=== PATIENT | male | born 1950 | race Caucasian/White ===

== ENCOUNTER 2023-08-03 04:54 | Inpatient (IN) | payer MEDICARE, SELFPAY ==
[2023-07-31 10:56] VITALS: BMI 31.4
[2023-07-31 11:16] LABS: % Basophils 0.8 % (0-2); % Eosinophils 4.1 % (0-6); % Immature Granulocytes 0.7 % (0-0.5); % Lymphocytes 21.5 % (20.5-51.1); % Monocytes 7.9 % (1.7-9.3); Absolute Basophils 0.1 10^3/uL (0-0.2); Absolute Eosinophils 0.4 10^3/uL (0-0.7); Absolute Immature Granulocytes 0.1 10^3/uL (0-0.05); Absolute Lymphocytes 1.9 10^3/uL (1.2-3.4); Absolute Monocytes 0.7 10^3/uL (0.1-0.6); Absolute Neutrophils 5.8 10^3/uL (1.4-6.5); Hematocrit 38.3 % (39.0-52.0); Hemoglobin 13.3 g/dL (13.0-18.0); Mean Corp Hgb Conc. 34.7 g/dL (33.0-37.0); Mean Corpuscular Hgb 28.1 pg (27.0-31.0); Mean Platelet Volume 9.8 fL (7.4-10.4); Nucleated Red Blood Cells % 0 % (-); Platelet Count 355 10^3/uL (130-400); Red Blood Cell Count 4.73 10^6/uL (4.70-6.10); Red Cell Dist. Width 14.1 % (11.5-14.5); White Blood Cell Count 8.9 10^3/uL (4.8-10.8)
[2023-07-31 11:35] LABS: APTT 26.2 Sec (23.4-35.0)
[2023-07-31 11:44] LABS: ALT (SGPT) 26 U/L (0-50); AST (SGOT) 23 U/L (17-59); Albumin 4.5 g/dl (3.5-5.0); Alkaline Phosphatase 125 U/L (38-126); Blood Urea Nitrogen 32 mg/dl (9-20); Calcium 10.1 mg/dl (8.4-10.2); Carbon Dioxide 28 mmol/L (22-30); Chloride 101 mmol/L (98-107); Direct Bilirubin 0.3 mg/dl (0.0-0.4); Estimated Creatinine Clearance 55 ml/min; Glucose 139 mg/dl (70-99); Potassium 4.2 mmol/L (3.5-5.1); Sodium 140 mmol/L (135-145); Total Bilirubin 1.1 mg/dl (0.2-1.3); Total Protein 7.1 g/dl (6.3-8.2)
[2023-07-31 11:58] LABS: Glycohemoglobin (HgbA1c) 9.5 % (4.0-5.6)
[2023-07-31 13:22] LABS: Urine Albumin 3+ (Neg - Trace); Urine Bilirubin Negative (Negative); Urine Character Clear (Clear); Urine Color Yellow; Urine Glucose Negative (Negative); Urine Ketone Negative (Negative); Urine Leukocyte Negative (Negative); Urine Nitrite Negative (Negative); Urine Occult Blood Negative (Negative); Urine Specific Gravity 1.025 (<1.030); Urine Urobilinogen Negative (Neg - 1+)
[2023-07-31 13:46] LABS: Urine Bacteria Few (Negative); Urine Mucus Moderate; Urine Red Blood Cell 0-2 /HPF (0-2); Urine White Cell 0-2 /HPF (0-5)
--- NOTE | 2023-07-31 14:44 | CM ---
spoke to pt in [facility], we discussed pre op CABG teaching including lifting restrictions. pt is intellectually challenged but appears to me as higher functioning. pt is prev indep, lives alone in an apt with no steps. he denies any dme's. his parents
are decesed and he has a younger sister whom he says is not physically well but mentally good, he talks to her often, she does not drive. he does not drive and lives in [facility], [place] then takes an uber to his destination. he has a good friend who works in his [employer] who will be taking the uber with his the morning of surgery and will be here when he is dc'ed to drive in the uber home with him. he gets 2-3 meals delivered to
his apt from various restaurants/deli's nearby daily. he does not go to the a supermarket. we discussed home food delivery from [employer]. he does not cook. he travels to his PCP, Dr Bella, in [place] ([phone]) weekly to get his insulin syringes
prefilled and gets his trulicity shot. i called the PCP, spoke to Mary Alice, she confirmed and said the pt is coming in this week and she will fill up 4 wks worth of insulin syringes so he does not need to travel during that time, he will also get 4
trulicity doses as well to take home.
pt will need VN services after dc, cm to shirinal is he needs SNF. he is aware that he will need to take an uber, or find a ride, to the f/u appt with Dr Wallace 10 days after dc.
cm role explained and all questions answered. pt has soap, ct surgery book and instructions. cm to follow, plan is for CABG wednesday 08/02.
[2023-08-03] VITALS (15 sets, daily range): BP systolic 92–167; BP diastolic 51–78; BMI 31.7
[2023-08-03] MEDS: MAGNESIUM OXIDE 500 MG PO (05:17)
[2023-08-03] MEDS: PROTONIX 40 MG PO (05:17)
[2023-08-03] MEDS: BACTROBAN 2% OINTMENT 1 APPLIC NASAL ×2 (05:17→19:47)
[2023-08-03] MEDS: LOPRESSOR 25 MG PO (05:17)
--- NOTE | 2023-08-03 05:18 | PTCARENOTE ---
pt admitted into room 2268, VS and weight obtained. caregiver, Miesha, at bedside. pt confirms 2 showers @ home and NPO since midnight. admission questions and med rec completed. clip prep and CHG wipes done. ABO drawn and sent. pre-op meds given.
--- NOTE | 2023-08-03 06:09 | W.CVOR.SURPR ---
CVOR Surgeon Immed Pre Op
-
I have examined this patient prior to performance of the scheduled procedure.
The patient's condition is unchanged from the time of the dictated/written History and
Physical and the patient is able to undergo the scheduled procedure.
CABG + LUIS MANUEL E
[2023-08-03 07:30] LABS: Urine Albumin 2+ (Neg - Trace); Urine Bilirubin Negative (Negative); Urine Character Clear (Clear); Urine Color Yellow; Urine Glucose Negative (Negative); Urine Ketone Negative (Negative); Urine Leukocyte Negative (Negative); Urine Nitrite Negative (Negative); Urine Occult Blood Negative (Negative); Urine Specific Gravity 1.015 (<1.030); Urine Urobilinogen Negative (Neg - 1+)
[2023-08-03 07:45] LABS: Urine Bacteria Few (Negative); Urine White Cell 0-2 /HPF (0-5)
[2023-08-03 07:45] LABS: ACT+ - POC 90 Seconds (82-134)
[2023-08-03 07:46] LABS: Urine Red Blood Cell 0-2 /HPF (0-2)
[2023-08-03 07:50] LABS: B.E. - POC -1.2 mmol/L; Glucose - POC 175 mg/dl (65-99); HCO3 - POC 23 mmol/L (21-29); Hematocrit - POC 31 % PCV (42-52); Hemodilution- POC No; Hemoglobin Calculated - POC 10.4; Ionized Calcium - POC 1.11 mmol/L (1.12-1.27); O2 Saturation %Calculated-POC 99.4 5 (92-96); PCO2 - POC 36 mmHg (35-45); PO2 - POC 155 mmHg (80-100); Potassium - POC 3.8 mmol/L (3.6-5.0); Sodium - POC 140 mmol/L (135-145); pH - POC 7.41 (7.35-7.45)
[2023-08-03 09:09] LABS: ACT+ - POC 484 Seconds (82-134)
--- NOTE | 2023-08-03 09:15 | CM ---
Patient in OR today for CABG.
Pt. resides in a private apartment alone.
He is functionally indep. at baseline without the use of any assisted device.
DC plan is anticipated for home w/ VN; friend will be staying w/ him for sev. days.
CM to follow.
[2023-08-03 09:36] LABS: B.E. - POC 1.2 mmol/L; Glucose - POC 134 mg/dl (65-99); HCO3 - POC 27 mmol/L (21-29); Hematocrit - POC 24 % PCV (42-52); Hemodilution- POC Yes; Hemoglobin Calculated - POC 8.1; Ionized Calcium - POC 0.99 mmol/L (1.12-1.27); O2 Saturation %Calculated-POC 99.9 5 (92-96); PCO2 - POC 44 mmHg (35-45); PO2 - POC 334 mmHg (80-100); Potassium - POC 4.5 mmol/L (3.6-5.0); Sodium - POC 138 mmol/L (135-145); pH - POC 7.38 (7.35-7.45)
[2023-08-03 09:36] LABS: ACT+ - POC 501 Seconds (82-134)
[2023-08-03 10:07] LABS: B.E. - POC 0.6 mmol/L; Glucose - POC 156 mg/dl (65-99); HCO3 - POC 26 mmol/L (21-29); Hematocrit - POC 28 % PCV (42-52); Hemodilution- POC Yes; Hemoglobin Calculated - POC 9.4; Ionized Calcium - POC 1.05 mmol/L (1.12-1.27); O2 Saturation %Calculated-POC 99.6 5 (92-96); PCO2 - POC 44 mmHg (35-45); PO2 - POC 178 mmHg (80-100); Sodium - POC 138 mmol/L (135-145); pH - POC 7.38 (7.35-7.45)
[2023-08-03 10:08] LABS: ACT+ - POC 443 Seconds (82-134)
[2023-08-03 11:00] LABS: ACT+ - POC 104 Seconds (82-134)
[2023-08-03 11:02] LABS: B.E. - POC -2.1 mmol/L; Glucose - POC 176 mg/dl (65-99); HCO3 - POC 22 mmol/L (21-29); Hematocrit - POC 27 % PCV (42-52); Hemodilution- POC Yes; Hemoglobin Calculated - POC 9.3; Ionized Calcium - POC 1.26 mmol/L (1.12-1.27); O2 Saturation %Calculated-POC 99.9 5 (92-96); PCO2 - POC 37 mmHg (35-45); PO2 - POC 250 mmHg (80-100); Potassium - POC 4.2 mmol/L (3.6-5.0); Sodium - POC 142 mmol/L (135-145)
--- NOTE | 2023-08-03 11:38 | W.PN.CT.SURG ---
CT Surgery Operative Note
-
CARDIAC SURGERY OPERATIVE REPORT
Preoperative Diagnosis: Multivessel Coronary Artery Disease with involving the proximal LAD
Postoperative Diagnosis: Same, acute on chronic ischemic heart failure
Procedure(s) Performed:
1. Standard sternotomy with aortic and right atrial cannulation
2. Coronary artery bypass grafting x 4 (In situ BOSTON to LAD, Ao to RSVG to high diagonal, Ao to RSVG to OM, Ao to RSVG to RPDA)
3. Endoscopic vein harvesting of right lower extremity
4. Transesophageal echocardiography
5. Placement temporary atrial and ventricular pacing wire
6. Left atrial appendage exclusion with a 35 mm clip
Date of Surgery: 08/03/23
Comorbidities:
1. Multivessel coronary artery disease involving the proximal LAD
2. Acute on chronic ischemic heart failure with EF intraoperatively of 35% from baseline of 50%
3. Hyperlipidemia
4. Hypertension
5. Diabetes
6. Schizophrenia
7. GURMEET
8. Pre-existing bundle branch block
Attending Surgeon: Chase Wallace MD, MS
Assistants: Chase Hawkins PA-C (present and necessary to medical assistant float, endoscopic vein harvest, retraction, suction, exposure, suture management, and wound closure under my direction)
Anesthesiology: Romeo Stewart MD and Elfego Solorio CRNA
Scrub and Circulating RNs: Matt Avilez RN, Alonso Juan RN
Warehouse Pricing And Inventory Clerk: Shar Mak CCP
Anesthesia: GETA
EBL: per perfusion records
Products: None
CPB Time: 87 minutes
Aortic Cross Clamp Time: 71 minutes
Indication(s) for Procedures: This is a 72-year-old male with multivessel coronary disease and stable angina. He presented with shortness of breath with exertion and chest discomfort. He underwent left heart cath which demonstrated multivessel
coronary artery disease involving the proximal LAD and multiple other territories. Given the disease pattern, and his comorbidities, he was offered revascularization as a class I indication.
Conduit(s) Quality:
BOSTON -excellent/skeletonized great flow
RSVG -good/overall relatively uniform with minimal varicosities
Target(s) Quality:
RCA/PDA -excellent/large target with good quality tissue, test dose of antegrade flow at approximately 65 cc a minute at a pressure of 80 mmHg
OM -good/slightly smaller target but overall good quality, able to flow 40 cc a minute at a pressure of 80 mmHg
High diagonal�good/good size quality target able to flow approximate 30 cc a minute at a pressure of 86 mmHg
LAD -excellent/graft to the midportion, excellent visual flow in the LAD territory as well as backfilling into the lower diagonal with removal of the bulldog
Findings:
Ventricular ejection fraction preoperatively was found to be 35%, global with some apical hypokinesis. This was new compared to his baseline indicating acute on chronic heart failure secondary to ischemia. Following surgery his EF did improve
slightly to 40-45% on low-dose dobutamine with some better apical contractility. Index initially was 1.6 and improved to 2.2. He did not require any blood products and did initially require AV pacing but then resumed his [employer] [place] sinus rhythm. The
BOSTON was harvested in a skeletonized fashion. Following bypass grafting, test dose cardioplegia was given down each distal and confirmed patency and hemostasis. Each distal was probed both proximally and distally to confirm disease and patency,
respectively. His left atrial appendage was verified to be free of any thrombus or debris preoperatively. A 35 mm clip was applied flush the base found to have no color flow on completion transesophageal echocardiogram
Description of Procedure: The patient was taken to the operating room. Their identity and procedure to be performed were verified and they were positioned supine on the operating table. Induction via general anesthesia with endotracheal intubation
was performed and central venous access and arterial monitoring were inserted. A preoperative transesophageal echocardiogram was performed to assess cardiac function and valvular function. The patient was then prepped and draped from chin to feet in
a sterile fashion. A preoperative time-out was performed with all members of the team present. A midline chest incision was performed along with median sternotomy. Simultaneous endoscopic access of the right lower extremity for saphenous vein
harvest was obtained along with administration of an initial 5,000 units of IV heparin. A RulTract sternal retractor was positioned to exposure the left internal mammary bed. The mammary was harvested and found to have good flow. A bulldog clamp was
applied to the distal end of the mammary after dividing it. It was wrapped in a papaverine soaked RayTec and replaced back into the left hemithorax. The RulTract was exchanged for a median sternal retractor. The innominate vein was isolated. Full
heparinization was given (a total of 60,000 units). We created a pericardial well. The aortic cannulation site was chosen where it was soft, pliable, and free of calcium. Cannulation was performed with an arterial cannula in the ascending aorta and
a triple-stage venous cannula through the right atrial appendage. The arterial cannula line had an appropriate bounce and correlating pressures with test dosing. Next, a root vent/antegrade cannula was inserted into the ascending aorta. The ACT was
confirmed to be over 400 and retrograde autologous priming was performed before commencing cardiopulmonary bypass. The pulmonary artery was away from the aorta to facilitate a clamp site. The aortic cross-clamp was placed after decreasing
the flow on the bypass and mean arterial pressure. A total of 1.2L initial dose of antegrade Del-Nido cardioplegia solution was given and planned for re-dosing every 75 minutes as necessary. There was rapid electro-mechanical arrest of the heart at
250 cc of cardioplegia. The left ventricle was observed for distention on echocardiogram and manual palpation. Cold slush was placed into a sponge and topically on the RV while we systemically cooled to 34 degrees centigrade.
I positioned the heart to expose the distal right coronary at the posterior descending artery. A red devil blade was used to expose the coronary and perform the arteriotomy. Coronary Avalos scissors were used to enlarge the incision. The saphenous vein
was trimmed and beveled to an appropriate size. The distal anastomosis was performed using 7-0 prolene in an end-to-side fashion. Antegrade cardioplegia was administered into the graft. Appropriate hemostasis and flow were confirmed. The graft was
measured for length to the aorta and cut. The heart was then medialized and left atrial appendage was identified. It was sized to a 35 mm clip which was applied flush the base. A suitable site on the obtuse marginal was chosen. We dissected and
prepared the distal target in a similar fashion. An end-to-side anastomosis was created with a 7-0 prolene. Antegrade cardioplegia was administered into the graft. Appropriate hemostasis and flow were confirmed. The graft was measured for length to
the aorta and cut. Next the heart was then mobilized in order to expose the high diagonal vessel. It was prepped in a similar fashion a small coronary arteriotomy was created. The vein was beveled accordingly and end-to-side anastomosis was
created with 7-0 Prolene in a running fashion. A suitable target on the mid/distal left anterior descending was identified. We dissected and prepared the distal target in a similar fashion. We retrieved the BOSTON from the chest and created a
pericardial opening while being cognizant of the phrenic nerve to facilitate the course of the mammary. The distal end of the mammary was prepped and beveled to size. We verified orientation and length of the SOM and found brisk flow. An end-to-side
anastomosis was created with a 7-0 prolene. We temporarily released the bulldog clamp on the mammary to inspect flow. Perfusion to the LAD territory was visualized and hemostasis was confirmed. The bull clamp was replaced on the mammary. The heart
was filled and the root was distended with antegrade cardioplegia to make final assessment of graft length and orientation. We created 3 aortotomies using a #11 blade then a 4.0mm aortic punch. The proximal anastomoses were created in an end-to-side
fashion using 6-0 prolene. At the the same time, we re-warmed to 36.5 degrees centigrade. The bulldog clamp was removed from the mammary. Temporary bipolar ventricular pacing wires were placed on the base of the right ventricle along with temporary
atrial pacing wires at the SVC right atrial junction. The patient was placed in a trendelenburg position and flows on bypass were lowered. The aortic cross clamp was removed and flows were slowly brought back up. All bypass grafts were inspected and
were free from kinking or twisting. The distal and proximal anastomoses appeared hemostatic. Once transesophageal echocardiography appeared satisfactory for de-airing, the flows were temporarily lowered for root vent removal. After verifying
acceptable parameters, we initiated weaning from cardiopulmonary bypass. Once we were off cardiopulmonary bypass, the venous cannula was clamped and removed. A test dose of protamine was administered and the patient was monitored for any adverse
reaction before resuming protamine. Once half of the protamine dose was delivered, pump suckers were turned off and the systolic blood pressure was lowered for aortic decannulation. The aortic cannula was removed and pursestrings were tied down. All
cannulation sites were oversewn with a 4-0 prolene. The mammary bed was inspected and hemostasis was confirmed. Once the mediastinum was hemostatic, 19Fr Danny drain was placed in the left pleural cavity and two 24Fr Danny drains were placed within
the pericardium. The sternum was approximated with 4 #7 single and 3 #8 double stainless steel wires. Fascia was approximated with #1 vicryl suture. The subcutaneous, dermis and epidermis were closed in layers in a running fashion. The skin wound
was cleansed and dressed.
All instrument, sponge, and needle counts were confirmed to be correct x 2 at the end of the operation. The patient was transferred to the cardiac intensive care unit in critical but stable condition.
I, Dr. Chase Wallace, was present, scrubbed for, and performed all critical elements of this procedure.
Chase Wallace MD, MS
Cardiothoracic Surgeon
[facility]
This operative dictation was created using the [employer] dictation system. Please excuse any grammatical, typographical, or 'sound alike' errors
[2023-08-03 11:58] LABS: Glucose - Point of Care 211 mg/dl (70-99)
--- NOTE | 2023-08-03 12:00 | PTCARENOTE ---
Received patient from CVOR at 1155. Pt intubated and sedated. RASS -5. Unresponsive. PERRLA 2mm brisk. Intubated with 8.0 ETT 24cm at the lip. POX 94%. SIMV 60% 14 600 5/5. Pt not breathing over the vent at this time. Mediastinal x2 chest tubes
y-sited to 1 atrium to -20cm suction draining red fluid. Left pleural chest tube to -20cm suction draining red fluid. No air leaks, tidaling, or crepitus noted. Small amount of clear secretions via oral cavity when suctioning. SR with LBBB on tele
with rates in the 60s. BP 102/50. Titrating cardene gtt per orders. Heart tones audible. CI 2.05. PA pressures 30s/20s, CVP 14. Bilateral radial pulses and DP pulses palpable. No edema noted. Epicardial AV wires set to back up VVI 50/8/2. No pacing
spikes noted after thresholds completed. Abdomen soft, round, nontender. Hypoactive BS. Balbuena catheter intact draining adequate amounts of clear yellow urine. Sternal incision approximated with skin glue and SIRISHA. Chest tube dressing CDI. Right groin
puncture site approximated with skin glue-GALLERY INTERN. Right SVG harvest approximated with skin glue and GEOFFREY-CDI. Right IJ cordis and swan floated to 45cm. Left radial jayda intact. All lines flushed, leveled, and zeroed. Left AC 20g PIV intact. Gtts:
Precedex, Insulin, Cardene, KVOx2. See MAR for medication administration. See worklist for complete nursing assessment. Post op EKG, labs, and CXR obtained.
[2023-08-03 12:07] LABS: Hematocrit 29.1 % (39.0-52.0); Platelet Count 254 10^3/uL (130-400)
[2023-08-03 12:11] LABS: B.E. -3.5 mmol/L; HCO3 22.1 mmol/L (21-28); Ionized Calcium 1.24 mMOL/L (1.15-1.33); O2 Saturation % 96.8 % (94-98); PCO2 41 mmHg (35-48); PO2 78 mmHg (83-108); Potassium 4.6 mMOL/L (3.5-5.1); Sodium 137 mMOL/L (136-145); pH 7.34 (7.35-7.45)
[2023-08-03 12:14] LABS: Hemoglobin 10.2 g/dL (13.0-18.0)
[2023-08-03 12:15] LABS: O2 Therapy vent
[2023-08-03 12:16] LABS: APTT 28.8 Sec (23.4-35.0)
[2023-08-03] MEDS: ANCEF 10 IV ×2 (12:20)
[2023-08-03] MEDS: NOVOLOG FLEXPEN SC ×3 (12:20→13:21)
[2023-08-03] MEDS: NSS 500 IV (12:21)
[2023-08-03] MEDS: NEURONTIN PO ×2 (12:21→14:33)
[2023-08-03 12:24] LABS: Blood Urea Nitrogen 34 mg/dl (9-20); Estimated Creatinine Clearance 48 ml/min; Glucose 185 mg/dl (70-99); Magnesium 2.5 mg/dl (1.6-2.3)
[2023-08-03 13:05] LABS: Glucose - Point of Care 178 mg/dl (70-99)
[2023-08-03] MEDS: TYLENOL PO (13:21)
[2023-08-03] MEDS: FERRLECIT 110 MG IV (13:22)
--- NOTE | 2023-08-03 13:34 | W.PN.CD ---
Today's Communication / Plan
-
Close post-op monitoring and care with weaning of drips and vent as tolerated per CT surgery/CVICU protocol.
Impression / Plan
-
Assessment/Plan: 72 y/o male with LBBB, hypertension, dyslipidemia, schizophrenia, GURMEET, ICM, and severe triple-vessel CAD who is now s/p CABG.
CAD: severe, triple vessel
-now s/p coronary artery bypass grafting x 4 (In situ BOSTON to LAD, Ao to RSVG to high diagonal, Ao to RSVG to OM, Ao to RSVG to RPDA), Left atrial appendage exclusion with a 35 mm clip 08/03/23 Dr. Wallace
-intubated/ventilated post-op
-on Cardene post-op
-CT's, Balbuena, pacer wire in place
-intra-op KRISTOPHER EF 35-40%, per notes slight improvement 40-45% post-op on dobutamine, which has since been stopped
-post-op telemetry shows SR, EKG pre-and post op LBBB (stable)
ICM:
-EF 40-50% on pre-op TTE
-intra-op KRISTOPHER 35-40% as above
-on ARB and BB as OP
-monitor volume post-op
HTN:
-monitor post-op
HLD:
-continue statin
DM:
-on insulin gtt post-op per protocol
Physical Exam
Vital Signs/Labs
Vital Signs
Temp Pulse Resp BP Pulse Ox
97.3 F 72 14 117/59 96
08/03/23 13:00 08/03/23 13:00 08/03/23 13:00 08/03/23 13:00 08/03/23 13:08
08/02/23 08/03/23 08/04/23
06:59 06:59 06:59
Actual Weight 97.2 kg
08/03/23 11:56
PT 16.0 Sec (11.4-14.6) H 08/03/23 11:56
INR 1.30 08/03/23 11:56
APTT 28.8 Sec (23.4-35.0) 08/03/23 11:56
Magnesium 2.5 mg/dl (1.6-2.3) H 08/03/23 11:56
Physical Exam
Constitutional: No acute distress
Cardiovascular: Rhythm & rate is regular
Respiratory: Other (intubated/ventilated, lungs clear)
Neuro/Psych: Other (sedated)
Other: Skin (mid sternal incision site intact)
Data Reviewed
-
Date of Service: August 03, 2023
EKG: Tracing Personally Visualized and interpreted (SR with LBBB) and Other (tele SR)
X-Ray/CT/US/MRI/NUC/PET: Report Reviewed by me (CXR stable post-op)
--- NOTE | 2023-08-03 13:53 | W.PN.UPDATE ---
Update Note
Progress Note Update
72-year-old male electively admitted 08/02 for CABG due to stable exertional angina due to multivessel coronary disease
IV fluids: 900
U.O.:� 325
Blood:� none
Wires:� none
Inotropes:� none
Pressors:� none
Sedatives:� Precedex
�
NEURO: sedated on Precedex, pupils +2mm B/L
RESP: #8OT @24cm> 600/60%/14/5. Lungs clear B/L. 2 mediastinal (0cc on arrival) and L pleural (0cc on arrival) chest tubes to -20cm suction. Sanguineous drainage
CV: RRR +S1, S2, no S3, no�rub, no murmur. Dermabond to median sternotomy. RIJ w/Woodruff locked @ 45cm. PA 36/21; CVP 16; C.O 4.3/CI 2.1
ABD: round, soft, no BS
EXT: no edema, +2/4 DP pulses B/L, no femoral bruit, RLE GEOFFREY wrap intact; left radial A-line intact
: Balbuena with clear yellow urine
�
A/P: POD #0 s/p CABG x 4 BOSTON-LAD, SVG-high diagonal, SVG-OM, SVG-RPDA. Left atrial appendage exclusion #35 mm clip
KRISTOPHER: EF�45-50%
- wean and extubate
- chronic LBBB
# CAD w/HFrEF (EF 35-40% pre-op)
- will require ASA/Plavix, statin, beta-evon (on Coreg @ home)
# acute surgical blood loss anemia-expected
- initial post-op Hb 11.2
- trend CBC
�
# T2DM (A1C 9.5)
- insulin infusion x 48h
- DM EMPLOYEE RELATIONS ADVISOR consulted
- resume Lantus, Glipizide, MFM, Trulicity as tolerated
- diabetic diet
�
# Hypertension
- on Losartan, Amlodipine @ home
- resume as BP permits
# Schizophrenia
- resume Aripiprazole 5mg BID in AM
--- NOTE | 2023-08-03 14:00 | PTCARENOTE ---
Pt startled awake. Able to follow commands to shake head yes/no appropriately and to squeeze hands/wiggle toes. CHG bath completed. RT called to bedside, attempted to cpap, but patient quickly became apneic. Placed back on SIMV settings. Pt turned
from side to side with no significant dumps from chest tubes. Pt tolerated.
[2023-08-03 14:04] LABS: Glucose - Point of Care 136 mg/dl (70-99)
--- NOTE | 2023-08-03 14:28 | PTCARENOTE ---
CI 1.76, CT PUTTY PATCHER notified, no new orders at this time.
[2023-08-03] MEDS: PACERONE PO (14:33)
--- NOTE | 2023-08-03 14:35 | CON.INTV ---
Consultation
Consultation Request
Date/Time Consultation Requested: 08/03/2023
Date/Time Consultation Performed: 08/03/2023
Requesting Provider: Dr. Wallace
Performing Provider: Dr. Xavier Alberto
Reason for Consultation: Status post coronary artery bypass
Medical History
-
History of Present Illness:
72-year-old man who has history of multivessel coronary artery disease with stable angina. He was deemed candidate for surgical revascularization. Electively admitted for coronary artery bypass. Underwent coronary bypass without complications on
08/03/[address] Wallace.
Currently in the critical care unit.
Unable to provide history. Records reviewed.
On mechanical ventilation, appears comfortable.
Past Medical History
Past Medical History: Other (See assessment and plan section)
Social History
Tobacco: Other ( Never)
Alcohol: None
Employment: Retired
Family History
Family History: Unable to Obtain
Allergies / Home Medications
Allergies
Allergy/AdvReac Type Severity Reaction Status Date / Time
No Known Allergies Allergy Verified 07/26/23 15:01
Home Medications
�Medication �Instructions �Recorded �Confirmed �Last Taken �Type
amlodipine 10 mg tablet 10 mg PO DAILY 07/26/23 08/03/23 08/02/23 09:00 History
aripiprazole 5 mg tablet 5 mg PO BID 07/26/23 08/03/23 08/02/23 18:00 History
aspirin 81 mg tablet 81 mg PO DAILY 07/26/23 08/03/23 08/02/23 09:00 History
atorvastatin 40 mg tablet 40 mg PO HS 07/26/23 08/03/23 08/02/23 21:00 History
bumetanide 2 mg tablet 2 mg PO MOWEFR 07/26/23 08/03/23 08/01/23 09:00 History
carvedilol phosphate 10 mg 10 mg PO DAILY 07/26/23 08/03/23 08/02/23 09:00 History
capsule,ext.lbcyobe26xd multiphase
clindamycin HCl 300 mg capsule 300 mg PO TID 07/26/23 08/03/23 07/27/23 History
dulaglutide 1.5 mg/0.5 mL 1.5 mg SC QWEEK 07/26/23 08/03/23 07/24/23 History
subcutaneous pen injector
(Trulicity)
famotidine 40 mg tablet 40 mg PO DAILY 07/26/23 08/03/23 08/02/23 09:00 History
glipizide 10 mg tablet 10 mg PO BID 07/26/23 08/03/23 08/02/23 18:00 History
indomethacin 50 mg capsule 50 mg PO BID 07/26/23 08/03/23 08/02/23 18:00 History
insulin glargine 100 unit/mL 50 unit SC DAILY 07/26/23 08/03/23 08/02/23 05:00 History
subcutaneous cartridge
losartan 50 mg tablet 50 mg PO DAILY 07/26/23 08/03/23 08/02/23 09:00 History
metformin 500 mg tablet 500 mg PO BID 07/26/23 08/03/23 08/02/23 18:00 History
mirtazapine 30 mg tablet 30 mg PO HS 07/26/23 08/03/23 08/02/23 21:00 History
multivitamin 1 tab PO DAILY 07/26/23 08/03/23 08/02/23 09:00 History
pantoprazole 40 mg tablet,delayed 40 mg PO DAILY 07/26/23 08/03/23 08/02/23 09:00 History
release
potassium chloride 10 mEq 10 meq PO HS 07/26/23 08/03/23 08/02/23 21:00 History
capsule,extended release
Review of Systems
-
Unable to Obtain full review of systems at this time due to: Acuity
Vitals / Labs / Diagnostic Testing
Vital Signs
Temp Pulse Resp BP Pulse Ox
98.6 F 75 15 97/68 96
08/03/23 14:00 08/03/23 14:21 08/03/23 14:21 08/03/23 14:21 08/03/23 14:21
Lab Data
08/03/23 11:56
Laboratory Results
08/03/23
11:56
PT 16.0 H
INR 1.30
APTT 28.8
pH 7.34 L
pCO2 41
pO2 78 L
HCO3 22.1
O2 Delivery Level vent
Microbiology
07/31/23 11:05 Nose MRSA Screen - Final
No Methicillin Resistant Staphylococcus aureus isolated.
Diagnostic Testing:
Physical Exam
-
HEENT: Normocephalic
Cardiovascular: S1/S2
Respiratory: Clear, Non-Labored Respirations and Other (Chest tube in place without air leak)
GI: Soft and Non Distended
Neurology: Awake and Alert
Skin: Warm
General: Respiratory Distress (n)
Assessment
-
Status post coronary artery bypass
Postoperative mechanical ventilation
Postoperative anemia
Conditions present prior admission:
Systolic cardiomyopathy ejection fraction 35%.
Hypertension
Hyperlipidemia
Type 2 diabetes
Schizophrenia
Obstructive sleep apnea
left bundle branch block
-
Assessment and plan:
He is doing well postop-currently on mechanical ventilation and appears comfortable.
ABG reviewed: Adequate oxygenation on ventilation.
Continue SIMV mode with no change
Spontaneous breathing trial per protocol once sedation wears off.
Anemia noted-no evidence of acute bleeding
Follow H&H serially
Hemodynamics -acceptable on low-dose Levophed.
Wean off vasopressors as able
Normal renal function
Balbuena urinary output
Chest tube with no excessive drainage-no air leak.
Chest x-ray reviewed: With no pneumothorax or fluid collections.
Remain nothing by mouth
Head of the bed elevation
Glycemic control per protocol
DVT prophylaxis when safe from the surgical perspective.
Critical care statement: A total of 31 minutes of critical care time was provided for this patient today. This includes management of unstable vital signs, evaluation of the patient at bedside, reviewing the patient's pertinent medical records
including ventilator settings, arterial blood gases, radiographs, microbiology, laboratory evaluations and discussion with primary team, critical care nursing, and respiratory therapy.
[2023-08-03 15:04] LABS: Glucose - Point of Care 111 mg/dl (70-99)
--- NOTE | 2023-08-03 15:05 | PTCARENOTE ---
RT at bedside, placed pt cpap trial. Pt tolerating POX 98%.
[2023-08-03 15:44] LABS: Hematocrit 31.7 % (39.0-52.0); Hemoglobin 11.3 g/dL (13.0-18.0); Platelet Count 309 10^3/uL (130-400)
[2023-08-03 15:55] LABS: HCO3 22.7 mmol/L (21-28); Ionized Calcium 1.23 mMOL/L (1.15-1.33); O2 Saturation % 97.9 % (94-98); PCO2 42 mmHg (35-48); PO2 94 mmHg (83-108); Potassium 4.6 mMOL/L (3.5-5.1); pH 7.34 (7.35-7.45)
--- NOTE | 2023-08-03 16:00 | PTCARENOTE ---
Pt extubated to 6L NC. POX 95%. Pt able to state his name and . IS encouraged-500mL achieved.
[2023-08-03 16:04] LABS: Glucose - Point of Care 115 mg/dl (70-99)
--- NOTE | 2023-08-03 16:06 | RESPNOTE ---
1600 patient extubated without incident- 6 liter NC 94% HR 82 IS done by RN 500mL
[2023-08-03] MEDS: OFIRMEV 100 IV (16:19)
[2023-08-03 17:02] LABS: Glucose - Point of Care 118 mg/dl (70-99)
[2023-08-03] MEDS: LOW STRENGTH ASPIRIN 81 MG PO (17:03)
[2023-08-03] MEDS: PACERONE 200 MG PO ×2 (17:03→22:19)
[2023-08-03] MEDS: NEURONTIN 100 MG PO ×2 (17:03→22:19)
[2023-08-03] MEDS: ROXICODONE 5 MG PO (17:39)
[2023-08-03] MEDS: FLEXERIL 5 MG PO (17:39)
[2023-08-03] MEDS: ANCEF 5 IV (17:40)
[2023-08-03 18:59] LABS: Glucose - Point of Care 102 mg/dl (70-99)
[2023-08-03] MEDS: ABILIFY 5 MG PO (19:47)
[2023-08-03] MEDS: SENOKOT-S 1 TABLET PO (19:47)
[2023-08-03] MEDS: DILAUDID 0.5 MG IV (20:37)
[2023-08-03] MEDS: LR 250 IV (20:50)
[2023-08-03] MEDS: LIPITOR 40 MG PO (22:19)
[2023-08-03] MEDS: TYLENOL 1000 MG PO (22:19)
[2023-08-03] MEDS: REMERON 30 MG PO (22:20)
[2023-08-03 22:34] LABS: Glucose - Point of Care 114 mg/dl (70-99)
[2023-08-04] VITALS (26 sets, daily range): BP systolic 86–148; BP diastolic 49–70; PULSE 79; O2SAT 91–92; BMI 32.1
[2023-08-04 00:42] LABS: Glucose - Point of Care 93 mg/dl (70-99)
[2023-08-04] MEDS: ROXICODONE 5 MG PO ×4 (01:19→19:39)
[2023-08-04] MEDS: ANCEF 5 IV ×2 (02:00→10:40)
[2023-08-04] MEDS: DILAUDID 0.5 MG IV ×3 (02:21→15:43)
[2023-08-04 02:28] LABS: Glucose - Point of Care 125 mg/dl (70-99)
[2023-08-04 03:25] LABS: Mixed Venous O2 Saturation 59.3 %
[2023-08-04 03:27] LABS: Hematocrit 27.8 % (39.0-52.0); Hemoglobin 9.7 g/dL (13.0-18.0); Mean Corp Hgb Conc. 34.9 g/dL (33.0-37.0); Mean Corpuscular Hgb 28.4 pg (27.0-31.0); Mean Corpuscular Volume 81.5 fL (80.0-94.0); Mean Platelet Volume 9.8 fL (7.4-10.4); Platelet Count 311 10^3/uL (130-400); Red Blood Cell Count 3.41 10^6/uL (4.70-6.10); Red Cell Dist. Width 14.2 % (11.5-14.5)
[2023-08-04 03:42] LABS: Blood Urea Nitrogen 37 mg/dl (9-20); Calcium 8.8 mg/dl (8.4-10.2); Carbon Dioxide 22 mmol/L (22-30); Chloride 107 mmol/L (98-107); Estimated Creatinine Clearance 43 ml/min; Glucose 104 mg/dl (70-99); Magnesium 2.2 mg/dl (1.6-2.3); Potassium 4.2 mmol/L (3.5-5.1); Sodium 140 mmol/L (135-145)
[2023-08-04 04:21] LABS: Glucose - Point of Care 102 mg/dl (70-99)
[2023-08-04] MEDS: TYLENOL 1000 MG PO ×3 (06:17→21:14)
--- NOTE | 2023-08-04 06:30 | W.PN.CT ---
Today's Communication / Plan
-
-pod #1
-no issues overnight
-at 6 am: CI 1.89, CO 3.97, mVO2 59.3. Drips: Insulin. Levo is off at 5am
-CT output: 2 meds 120/190, L pleur 60/150 in 12/24 hrs
-wean off drips and deline
-continue insulin
-d/c Balbuena
-follow Cr - 1.8 today (1.6 on 08/02 and 1.4 preop)
-current meds (ASA, Plavix, Lopressor, Amio, Lipitor, Abilify, Remeron, Gabapentin)
-encourage IS, OOB
Assessment / Plan
-
- MV-CAD involving the proximal LAD- s/p CABG x 4 (In situ BOSTON to LAD, Ao to RSVG to high diagonal, Ao to RSVG to OM, Ao to RSVG to RPDA); RLE Evh; LAAE with [address] Wallace on 08/03/23, pod #1
- Intraop KRISTOPHER: LVEF preop was found to be 35%, global with some apical hypokinesis. This was new compared to his baseline indicating acute on chronic heart failure secondary to ischemia. Following surgery his EF did improve slightly to 40-45% on
low-dose dobutamine with some better apical contractility. Index initially was 1.6 and improved to 2.2. LUIS MANUEL was verified to be free of any thrombus or debris preoperatively. A 35 mm clip was applied flush the base found to have no color flow on
completion of transesophageal echocardiogram
- Acute on chronic ischemic heart failure with EF intraoperatively of 35% from baseline of 50%
- Hyperlipidemia
- Hypertension
- Diabetes II (HgA1c 9.5)
- Class 1 obesity (BMI 31)
- Schizophrenia
- GURMEET, not on CPAP
- Chronic LBBB
- CKD 3a (Cr 1.4 preop)
- Nonsmoker
- Acute postop blood loss anemia - stable without transfusion
- Acute postop atelectasis
- Acute postop hypovolemia with subsequent hypervolemia
- ROLF on CKD
Discussed patient care with: Nursing and Care Team
Subjective
-
Date of Service: August 04, 2023
Objective Data
-
PT 16.0 Sec (11.4-14.6) H 08/03/23 11:56
INR 1.30 08/03/23 11:56
APTT 28.8 Sec (23.4-35.0) 08/03/23 11:56
Vital Signs
Vital Signs
Temp Pulse Resp BP Pulse Ox
98.8 F 72 17 113/68 95
08/04/23 01:00 08/04/23 01:10 08/04/23 01:10 08/04/23 01:00 08/04/23 01:10
CT Intake/Output/Weight
08/03/23 08/03/23 08/04/23
06:59 18:59 06:59
Intake Total 596.6 / 621.7 25.1 / 621.7
Output Total 505 / 960 455 / 960
Balance 91.6 / -338.3 -429.9 / -338.3
SaO2: 95
Physical Exam
-
General: Awake and AOx3
Cardiovascular: Regular rate & rhythm, No Murmurs and No Rub
Respiratory: Decreased Breath Sounds
Sternum: Stable
Incision: Clean, Dry and Intact
Extremities: Other (trace edema b/l)
Data Reviewed
-
Lab Results: Results Reviewed
Medications: Active Meds Reviewed
Chest X-Ray: Report Reviewed and Image Reviewed
ECG: Report Reviewed and Image Reviewed
[2023-08-04] MEDS: ABILIFY 5 MG PO ×2 (07:59→19:39)
[2023-08-04] MEDS: LOW STRENGTH ASPIRIN 81 MG PO (07:59)
[2023-08-04] MEDS: MAGNESIUM OXIDE 500 MG PO ×2 (07:59→19:39)
[2023-08-04] MEDS: FLEXERIL 5 MG PO ×2 (07:59→19:39)
[2023-08-04] MEDS: PLAVIX 75 MG PO (07:59)
[2023-08-04] MEDS: PROTONIX 40 MG PO (07:59)
[2023-08-04] MEDS: NEURONTIN 100 MG PO ×3 (07:59→21:14)
[2023-08-04] MEDS: SENOKOT-S 1 TABLET PO ×2 (08:00→19:39)
[2023-08-04] MEDS: BACTROBAN 2% OINTMENT 1 APPLIC NASAL ×2 (08:00→20:14)
[2023-08-04] MEDS: LIDOCAINE 4% PATCH 1 PATCH TOPICAL (08:00)
--- NOTE | 2023-08-04 08:03 | W.PN.ANS.POP ---
Anesthesia Post Operative
- Anesthesia Post Op Note
Vital Signs Stable-See Nursing Note: Yes
Airway Patent: Yes
Adequate Pain Control: Yes
Change in Mental Status: No
Current Postoperative Nausea & Vomiting: No
Anesthesia Complications: No
General Anesthetic Recall: No
Unplanned Admission: No
Post Op Hydration Adequate: Yes
[2023-08-04 08:09] LABS: Glucose - Point of Care 115 mg/dl (70-99)
[2023-08-04] MEDS: NOVOLOG FLEXPEN 4 UNITS SC ×3 (08:57→16:46)
--- NOTE | 2023-08-04 10:48 | PTCARENOTE ---
assumed care of pt from previous shift RN, sinus rhythm on tele w BBB, VSS, + peripheral pulses, +1 edema to bilateral lower extremities. epicardial pacing wire set to VVI 50/8. Lungs diminished, pox 94% on 4L NC. Coughing and deep breathing
encouraged, IS achieved up to 500. +bs, tolerating PO intake, quinteros removed DTV. Received pt w CT x3- LP removed. Keon and jayda removed as instructed. Pt was medicated for pain. Assisted w cardiac rehab, walked in [place]. Plan of care reviewed w the
pt and questions encouraged.
--- NOTE | 2023-08-04 11:21 | W.PN.CD ---
Addendum entered and electronically signed by Richelle Medrano MD 08/04/23 14:13:
I saw and examined the patient.
The LICENSED JOURNEYMAN ELECTRICIAN's note was reviewed and I agree with the note.
Comment: Pain at incision, but otherwise no complain. rrr, poor resp effort, bibasilar rales. Continue po op treatement . Encouraged ICS. Add GDMT as able.
Original Note:
Today's Communication / Plan
-
Post op care per CTS
add back GDMT as BP can tolerate.
Impression / Plan
-
Assessment/Plan: 72 y/o male with LBBB, hypertension, dyslipidemia, schizophrenia, GURMEET, ICM, and severe triple-vessel CAD who is now s/p CABG.
CAD: severe, triple vessel
-now s/p coronary artery bypass grafting x 4 (In situ BOSTON to LAD, Ao to RSVG to high diagonal, Ao to RSVG to OM, Ao to RSVG to RPDA), Left atrial appendage exclusion with a 35 mm clip 08/03/23 Dr. Wallace - POD 1
-intra-op KRISTOPHER EF 35-40%, per notes slight improvement 40-45% post-op on dobutamine, which has since been stopped
-NSR/ LBBB (stable)
ICM:
-EF 40-50% on pre-op TTE
-intra-op KRISTOPHER 35-40% as above
-on ARB and BB as OP ( now on po bblocker )
-monitor volume post-op, GDMT as able.
HTN:
-currently stable
HLD:
-continue statin
DM:
-on insulin gtt/meds per protocol
Physical Exam
Vital Signs/Labs
Vital Signs
Temp Pulse Resp BP Pulse Ox
99 F 79 20 117/63 93
08/04/23 10:00 08/04/23 10:04 08/04/23 10:04 08/04/23 10:04 08/04/23 10:55
08/03/23 08/04/23 08/05/23
06:59 06:59 06:59
Actual Weight 97.2 kg 98.5 kg
08/04/23 03:18
PT 16.0 Sec (11.4-14.6) H 08/03/23 11:56
INR 1.30 08/03/23 11:56
APTT 28.8 Sec (23.4-35.0) 08/03/23 11:56
Magnesium 2.2 mg/dl (1.6-2.3) 08/04/23 03:18
Physical Exam
Constitutional: No acute distress
Cardiovascular: Rhythm & rate is regular and Pedal edema is absent
Respiratory: Respiratory effort normal (decreased bases )
Neuro/Psych: AO x 3
Other: Other (MSI well approximated )
Data Reviewed
-
Date of Service: August 04, 2023
EKG: Other (tele: NSR )
Labs: Labs Reviewed by me
[2023-08-04] MEDS: LOPRESSOR PO (11:55)
[2023-08-04] MEDS: PACERONE PO (11:55)
[2023-08-04 12:10] LABS: Blood Urea Nitrogen 42 mg/dl (9-20); Calcium 8.8 mg/dl (8.4-10.2); Carbon Dioxide 24 mmol/L (22-30); Chloride 105 mmol/L (98-107); Estimated Creatinine Clearance 41 ml/min; Glucose 103 mg/dl (70-99); Potassium 4.6 mmol/L (3.5-5.1); Sodium 138 mmol/L (135-145); eGFR 37.02
[2023-08-04] MEDS: NSS IV (12:38)
[2023-08-04 13:20] LABS: Glucose - Point of Care 131 mg/dl (70-99)
[2023-08-04 13:20] LABS: Glucose - Point of Care 113 mg/dl (70-99)
--- NOTE | 2023-08-04 13:58 | W.PN.INTV ---
Today's Communication / Plan
Recommendations
Follow H&H
Daily chest x-ray
Follow chest tube output
Continue with cardiac management
Postoperative care
Sign off
Assessment
-
Status post coronary artery bypass
Postoperative mechanical ventilation
Postoperative anemia
Conditions present prior admission:
Systolic cardiomyopathy ejection fraction 35%.
Hypertension
Hyperlipidemia
Type 2 diabetes
Schizophrenia
Obstructive sleep apnea
left bundle branch block
-
Assessment and plan:
Doing well postoperative day 1
Pain is controlled
On low rate supplemental oxygen
Clear lung exam
Encourage incentive spirometry
Increase activity as tolerated
Anemia noted-no evidence of acute bleeding
Hemoglobin 9.7.
Follow H&H serially
Hemodynamics -stable off vasopressors.
Follow renal function, creatinine of 1.9
Balbuena urinary output
Chest tube with no excessive drainage-no air leak.
Chest x-ray reviewed: With no pneumothorax or fluid collections.
Advance diet as tolerated
Head of the bed elevation
Glycemic control per protocol
DVT prophylaxis when safe from the surgical perspective.
Patient has been transferred to telemetry.
Critical care team will sign off.
Subjective Dataa
Subjective Data
Date of Service:
Date of Service: August 04, 2023
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
Subjective:
Patient denies any significant shortness of breath at rest
Pain is controlled
Denies any cough or phlegm production
Review of Systems
GI: Abdominal Pain (n), Nausea (n) and Vomiting (n)
Neuro: Headache (n)
Objective Data
Data Reviewed
Vital Signs / I&O / Oxygen:
Vital Signs
Temp Pulse Resp BP Pulse Ox
98.9 F 79 20 113/57 93
08/04/23 13:00 08/04/23 13:00 08/04/23 13:00 08/04/23 13:00 08/04/23 13:00
Intake and Output
08/03/23 08/04/23 08/05/23
06:59 06:59 06:59
Intake Total 621.7 / 621.7 159.5 / 159.5
Output Total 1275 / 1275 135 / 135
Balance -653.3 / -653.3 24. / 24.5
SaO2 [CPAP/PSV] 98
SaO2 [SIMV] 96
SaO2 93
Nasal Cannula flow liters per 4
minute
Physical Exam
General: Respiratory Distress (n) and Comfortable
HEENT: Normocephalic
Cardiovascular: S1-S2
Respiratory: Non-Labored Respirations and Chest Tube (No air leak)
GI: Soft and Non Distended
Neurology: Awake, Alert and Oriented
Labs/Micro/Reports
Lab Data
08/04/23 03:18
08/04/23 11:46
Laboratory Results
08/03/23
15:36
pH 7.34 L
pCO2 42
pO2 94
HCO3 22.7
O2 Delivery Level
Microbiology
07/31/23 11:05 Nose MRSA Screen - Final
No Methicillin Resistant Staphylococcus aureus isolated.
[2023-08-04] MEDS: FERRLECIT 110 MG IV (14:23)
[2023-08-04 14:24] LABS: Glucose - Point of Care 272 mg/dl (70-99)
--- NOTE | 2023-08-04 14:41 | PTCARENOTE ---
pacing wires insulated
[2023-08-04 15:41] LABS: Glucose - Point of Care 217 mg/dl (70-99)
[2023-08-04] MEDS: NOVOLIN R INSULIN INFUSION 100 IV (15:41)
[2023-08-04] MEDS: PACERONE 200 MG PO ×2 (15:43→21:14)
[2023-08-04 16:42] LABS: Glucose - Point of Care 202 mg/dl (70-99)
--- NOTE | 2023-08-04 17:08 | PTCARENOTE ---
pt DTV, bladder scanned for 137ml. 40mg lasix ordered by CT SALES DEVELOPMENT REPRESENTATIVE.
[2023-08-04] MEDS: LASIX 40 MG IV (17:14)
[2023-08-04 18:53] LABS: Glucose - Point of Care 196 mg/dl (70-99)
--- NOTE | 2023-08-04 19:35 | PTCARENOTE ---
Pt received from outgoing RN, pt aaox4, oob in a chair, av wire insulated, rt IJ cordis, Insulin gtt till tomorrow, MS ct to suction, vss, pain management, NSR, 2Lnc, DTV/ quinteros dced this morning, RN will continue to bladder scan pt for retention.
RN will continue to follow pt care.
[2023-08-04] MEDS: LOPRESSOR 12.5 MG PO (19:39)
[2023-08-04 20:12] LABS: Glucose - Point of Care 93 mg/dl (70-99)
[2023-08-04 21:14] LABS: Glucose - Point of Care 109 mg/dl (70-99)
[2023-08-04] MEDS: LIPITOR 40 MG PO (21:14)
[2023-08-04] MEDS: REMERON 30 MG PO (21:14)
[2023-08-04] MEDS: BUMEX 2 MG IV (21:38)
[2023-08-04 22:17] LABS: Glucose - Point of Care 125 mg/dl (70-99)
[2023-08-04 23:11] LABS: Glucose - Point of Care 109 mg/dl (70-99)
[2023-08-05] VITALS (31 sets, daily range): BP systolic 101–158; BP diastolic 53–69; BMI 32.8
--- NOTE | 2023-08-05 00:19 | PTCARENOTE ---
pt reassessment unchanged from previous, resting in bed, vss, 3lnc o2, rt ij cordis, insulin gtt, Bumex 2mg x1 IVP given, pt has not voided yet. Bladder scan for 384ml.
--- NOTE | 2023-08-05 00:47 | PTCARENOTE ---
straight cath x1-->450ml output
[2023-08-05 00:54] LABS: Glucose - Point of Care 77 mg/dl (70-99)
[2023-08-05 02:30] LABS: Glucose - Point of Care 107 mg/dl (70-99)
[2023-08-05 03:25] LABS: Hematocrit 27.2 % (39.0-52.0); Hemoglobin 9.2 g/dL (13.0-18.0); Mean Corp Hgb Conc. 33.8 g/dL (33.0-37.0); Mean Corpuscular Hgb 28.2 pg (27.0-31.0); Mean Corpuscular Volume 83.4 fL (80.0-94.0); Platelet Count 266 10^3/uL (130-400); Red Blood Cell Count 3.26 10^6/uL (4.70-6.10); Red Cell Dist. Width 14.8 % (11.5-14.5); White Blood Cell Count 20.4 10^3/uL (4.8-10.8)
[2023-08-05 03:40] LABS: Blood Urea Nitrogen 58 mg/dl (9-20); Carbon Dioxide 21 mmol/L (22-30); Estimated Creatinine Clearance 31 ml/min; Magnesium 2.4 mg/dl (1.6-2.3); eGFR 26.63
[2023-08-05 03:50] LABS: Calcium 8.2 mg/dl (8.4-10.2); Chloride 104 mmol/L (98-107); Glucose 109 mg/dl (70-99); Potassium 4.4 mmol/L (3.5-5.1); Sodium 136 mmol/L (135-145)
[2023-08-05 03:50] LABS: Glucose - Point of Care 122 mg/dl (70-99)
--- NOTE | 2023-08-05 03:51 | PTCARENOTE ---
pt reassessment unchanged from previous, vss, 3-4lnc, pain management, labs collected, chg bath completed, insulin gtt, rt IJ cordis, AV wires insulated.
[2023-08-05 04:41] LABS: Glucose - Point of Care 108 mg/dl (70-99)
[2023-08-05 05:26] LABS: Glucose - Point of Care 98 mg/dl (70-99)
--- NOTE | 2023-08-05 05:40 | PTCARENOTE ---
Bladder scanned for 175ml, pt has not void since being straight cath early this morning.
[2023-08-05] MEDS: ROXICODONE 5 MG PO ×2 (05:46→19:50)
[2023-08-05] MEDS: TYLENOL 1000 MG PO ×3 (05:46→21:47)
[2023-08-05] MEDS: FLEXERIL 5 MG PO ×2 (05:46→13:35)
--- NOTE | 2023-08-05 05:55 | W.PN.CT ---
Today's Communication / Plan
-
-pod #2
-Bumex 2mg IV given overnight for low UO
-Patient voided 50cc after quinteros removed, PVR 384cc. Straight cathed for 450cc.
-at 6 am: CI 1.89, CO 3.97, mVO2 59.3. Drips: Insulin. Levo is off at 5am
-CT output: 2 meds 40 in 1224 hrs
-follow Cr - 2.5 today (1.9 on 08/03 and 1.4 preop)
-DTV at 06:00, may need to consult Nephrology for worsening ROLF
-current meds (ASA, Plavix, Lopressor, Amio, Lipitor, Abilify, Remeron, Gabapentin)
-encourage IS, OOB
Assessment / Plan
-
- MV-CAD involving the proximal LAD- s/p CABG x 4 (In situ B[place] to LAD, Ao to RSVG to high diagonal, Ao to RSVG to OM, Ao to RSVG to RPDA); RLE Evh; LAAE with [address] Wallace on 08/03/23, pod #2
- Intraop KRISTOPHER: LVEF preop was found to be 35%, global with some apical hypokinesis. This was new compared to his baseline indicating acute on chronic heart failure secondary to ischemia. Following surgery his EF did improve slightly to 40-45% on
low-dose dobutamine with some better apical contractility. Index initially was 1.6 and improved to 2.2. LUIS MANUEL was verified to be free of any thrombus or debris preoperatively. A 35 mm clip was applied flush the base found to have no color flow on
completion of transesophageal echocardiogram
- Acute on chronic ischemic heart failure with EF intraoperatively of 35% from baseline of 50%
- Hyperlipidemia
- Hypertension
- Diabetes II (HgA1c 9.5)
- Class 1 obesity (BMI 31)
- Schizophrenia
- GURMEET, not on CPAP
- Chronic LBBB
- CKD 3a (Cr 1.4 preop)
- Nonsmoker
- Acute postop blood loss anemia - stable without transfusion
- Acute postop atelectasis
- Acute postop hypovolemia with subsequent hypervolemia
- ROLF on CKD
Subjective
Procedure
s/p CABG x 4 (In situ BOSTON to LAD, Ao to RSVG to high diagonal, Ao to RSVG to OM, Ao to RSVG to RPDA); RLE Evh; LAAE with [address] Wallace on 08/03/23
-
Date of Service: August 05, 2023
Objective Data
-
Lab Results
08/05/23 03:08
08/05/23 03:08
PT 16.0 Sec (11.4-14.6) H 08/03/23 11:56
INR 1.30 08/03/23 11:56
APTT 28.8 Sec (23.4-35.0) 08/03/23 11:56
Vital Signs
Vital Signs
Temp Pulse Resp BP Pulse Ox
98.8 F 74 18 105/60 89
08/05/23 04:00 08/05/23 05:00 08/05/23 05:00 08/05/23 05:00 08/05/23 05:00
CT Intake/Output/Weight
08/04/23 08/04/23 08/05/23
06:59 18:59 06:59
Intake Total 25.1 / 621.7 422.8 / 694.3 271.5 / 694.3
Output Total 770 / 1275 145 / 605 460 / 605
Balance -744.9 / -653.3 277.8 / 89.3 -188.5 / 89.3
SaO2: 89
Physical Exam
-
General: AOx3
Cardiovascular: Regular rate & rhythm
Respiratory: Decreased Breath Sounds
Sternum: Stable
Incision: Dressing Intact
Extremities: Edema +1
Data Reviewed
-
Lab Results: Results Reviewed
Chest X-Ray: Image Reviewed (small left pleural effusion)
[2023-08-05 07:32] LABS: Glucose - Point of Care 140 mg/dl (70-99)
[2023-08-05] MEDS: LR 1000 IV (08:12)
[2023-08-05] MEDS: LIDOCAINE 4% PATCH 1 PATCH TOPICAL (08:14)
[2023-08-05] MEDS: LOW STRENGTH ASPIRIN 81 MG PO (08:15)
[2023-08-05] MEDS: PACERONE 200 MG PO ×3 (08:15→21:47)
[2023-08-05] MEDS: ABILIFY 5 MG PO ×2 (08:15→19:50)
[2023-08-05] MEDS: NOVOLOG FLEXPEN 4 UNITS SC ×2 (08:15→11:50)
[2023-08-05] MEDS: SENOKOT-S 1 TABLET PO ×2 (08:15→19:50)
[2023-08-05] MEDS: PLAVIX 75 MG PO (08:15)
[2023-08-05] MEDS: LOPRESSOR 12.5 MG PO (08:15)
[2023-08-05] MEDS: PROTONIX 40 MG PO (08:15)
[2023-08-05] MEDS: NEURONTIN 100 MG PO ×3 (08:15→21:47)
[2023-08-05] MEDS: BACTROBAN 2% OINTMENT 1 APPLIC NASAL ×2 (08:16→19:50)
--- NOTE | 2023-08-05 08:49 | PTCARENOTE ---
assumed care of pt from previous shift RN, sinus rhythm on tele, + peripheral pulses, +1 edema to bilateral lower extremities, epicardial AV wire insulated. Lungs diminished, pox 90-92% on 4L NC, coughing and deep breathing encouraged. +bs, large
abd, semi firm- pt states that is baseline. Pt tolerating PO intake. MSI approximated, SIRISHA. Mediastinal CTs w minimal drainage. Right IJ cordis w LR infusing at 50ml/hr, PIV flushes easily. Insulin gtt maintained per glycemic protocol. Plan of care
reviewed w the pt and questions encouraged.
[2023-08-05 08:51] LABS: ALT (SGPT) 12 U/L (0-50); AST (SGOT) 39 U/L (17-59); Albumin 3.1 g/dl (3.5-5.0); Alkaline Phosphatase 102 U/L (38-126); Direct Bilirubin 0.3 mg/dl (0.0-0.4); Total Bilirubin 0.6 mg/dl (0.2-1.3); Total Protein 5.2 g/dl (6.3-8.2)
--- NOTE | 2023-08-05 09:22 | PTCARENOTE ---
pacing wires removed, bedrest and request VS explained to pt
[2023-08-05 09:31] LABS: Glucose - Point of Care 217 mg/dl (70-99)
[2023-08-05 09:44] LABS: Mixed Venous O2 Saturation 53.8 %
[2023-08-05 10:33] LABS: Glucose - Point of Care 218 mg/dl (70-99)
[2023-08-05] MEDS: DOBUTREX 500 MG 250 IV (10:36)
[2023-08-05 11:37] LABS: Glucose - Point of Care 185 mg/dl (70-99)
[2023-08-05] MEDS: NSS 500 IV (11:51)
--- NOTE | 2023-08-05 11:54 | PTCARENOTE ---
Pt bladder scanned for 404ml, straight cathed for 450ml. Dobutamine initiated and infusing as ordered. Glycemic maintained. Labs drawn and sent as ordered.
[2023-08-05 12:02] LABS: ALT (SGPT) 12 U/L (0-50); AST (SGOT) 40 U/L (17-59); Albumin 3.1 g/dl (3.5-5.0); Alkaline Phosphatase 98 U/L (38-126); Blood Urea Nitrogen 60 mg/dl (9-20); Calcium 8.4 mg/dl (8.4-10.2); Carbon Dioxide 23 mmol/L (22-30); Chloride 102 mmol/L (98-107); Estimated Creatinine Clearance 33 ml/min; Glucose 151 mg/dl (70-99); Potassium 4.1 mmol/L (3.5-5.1); Sodium 132 mmol/L (135-145); Total Bilirubin 0.7 mg/dl (0.2-1.3); Total Protein 5.2 g/dl (6.3-8.2); eGFR 27.97
--- NOTE | 2023-08-05 13:30 | PTCARENOTE ---
Glycemic due to be discontinued. Pt requiring 14 units/hr in column 5. CT LILY made aware. 15 units of lantus ordered. Insulin administered and GTT d/c as instructed.
[2023-08-05 13:34] LABS: Glucose - Point of Care 186 mg/dl (70-99)
[2023-08-05] MEDS: FERRLECIT 110 MG IV (14:26)
--- NOTE | 2023-08-05 14:38 | PTCARENOTE ---
mediastinal Cts removed without incident.
[2023-08-05] MEDS: LANTUS 0.149999999999999994 UNITS SC ×2 (14:40→21:48)
--- NOTE | 2023-08-05 14:44 | PTCARENOTE ---
pt pox 86-88% on 4L NC. CT LILY made aware. Instructed to increased NC 02 to 6L. Coughing and deep breathing encouraged.
[2023-08-05] MEDS: LASIX 40 MG IV (14:58)
--- NOTE | 2023-08-05 15:02 | PTCARENOTE ---
CXR completed, LR infusion d/c'ed. 40mg IV lasix administered as ordered. Pox 89% on 6L NC.
[2023-08-05 16:36] LABS: Glucose - Point of Care 304 mg/dl (70-99)
[2023-08-05] MEDS: NOVOLOG FLEXPEN-MODERATE RESISTANCE 7 UNITS SC (16:37)
[2023-08-05] MEDS: GLUCOTROL 10 MG PO (16:58)
--- NOTE | 2023-08-05 17:19 | W.PN.UPDATE ---
Update Note
Progress Note Update
Creatinine 1.8>1.9>2.5. LR @ 50cc/h per Dr. Wallace. LFTs WNL. A/V wires removed. Mediastinal chest tube Dc�d. MVO2 53%>Dobutamine started. Insulin infusion completed. Started Lantus 15u HS, Glucotrol 10mg BID + SSI. Repeat creatinine plateaued (2.4) @
1200. O2 sats 88% on 4L NC>LR DC'd and Lasix 40mg IV given. Bladder scan @ 1700 w/ 580cc retained>Balbuena reinserted. US left chest and TTE ordered for 08/05.
--- NOTE | 2023-08-05 17:25 | PTCARENOTE ---
pt bladder scanned for 580ml. Instructed by CT LILY to place quinteros. Quinteros placed, 600ml yellow urine in return.
--- NOTE | 2023-08-05 17:35 | PTCARENOTE ---
MV02 drawn and sent as ordered.
[2023-08-05 17:40] LABS: Mixed Venous O2 Saturation 57.4 %
[2023-08-05] MEDS: MILK OF MAGNESIA 30 ML PO (18:24)
--- NOTE | 2023-08-05 20:00 | PTCARENOTE ---
[facility]; pt resting comfortably in chair; pt is AAOx4; pt was assisted to the bathroom and back to bed; pt's pain increased to a 7/10, see MAR for pain management; LBBB on monitor, VSS; heart sounds audible, radial and DP pules
palpable, +1 lower right leg edema; lung sounds diminished at bases, spo2 90% on 6LNC, pt dyspneic on exertion; + BS x4 quadrants, abdomen soft non tender, round obese; pt voiding clear yellow urine via quinteros catheter; surgical sites maintained;
right IJ cordis and PIV maintained; dobutamine gtt infusing with SvO2 lab checks; pt is scheduled 08/05 for an Echo and US of left lung to evaluated possible left pleural effusion. call within reach; will continue to monitor.
[2023-08-05 21:36] LABS: Glucose - Point of Care 506 mg/dl (70-99)
[2023-08-05 21:47] LABS: Glucose - Point of Care 510 mg/dl (70-99)
[2023-08-05] MEDS: REMERON 30 MG PO (21:47)
[2023-08-05] MEDS: LIPITOR 40 MG PO (21:47)
[2023-08-05 22:06] LABS: Glucose 439 mg/dl (70-99)
[2023-08-05] MEDS: NOVOLOG FLEXPEN 14 UNITS SC (22:21)
[2023-08-06] VITALS (23 sets, daily range): BP systolic 121–168; BP diastolic 58–95; PULSE 79; O2SAT 96; BMI 33.1
--- NOTE | 2023-08-06 | PTCARENOTE ---
Pt assessment unchanged; LBBB on monitor, VSS; ongoing pain management, see MAR; HS BG was greater than 400, lab BG sent which was 439; CVPA ordered 14 units of NovoLog; 2 hr BG check was 398; CVPA made aware, no futher treatment at this time; will
re-check BG @ 0200; Mixed venous gas drawn and sent, CVPA made aware of results; no changed made to dobutamine gtt; call within reach; will continue to monitor.
[2023-08-06 00:19] LABS: Glucose - Point of Care 398 mg/dl (70-99)
[2023-08-06 00:31] LABS: Mixed Venous O2 Saturation 65.8 %
--- NOTE | 2023-08-06 01:05 | W.PN.CT ---
Addendum entered and electronically signed by SKYE Ochoa 08/06/23 16:42:
CDI inquiry:
Acute hypoxic respiratory failure (due to acute on chronic HFrEF)
Original Note:
Today's Communication / Plan
-
Currently maintain on Dobutamine drip @ 2, for MVO2 > 53%; monitoring mixed Venous Q6H, MVO2 improving�
Maintain quinteros catheter for acute retention �
Current meds (ASA, Plavix, Lopressor, Amio, Lipitor, Abilify, Remeron, Gabapentin)�
Lantus, Glucotrol restarted. Required additional insulin coverage overnight. Increased sliding scale coverage.
Encourage IS, OOB�
Creatinine 1.8>1.9>2.5>2.1 LR @ 50cc/h per Dr. Wallace. Lasix order 40mg at 1448.�
A/V wires and mediastinal chest tube Dc�d. �
Currently on 6L NC = maintain > 88%) 2 sat. US left chest and TTE ordered for 08/05.�
Encourage IS, OOB�
�
Assessment / Plan
-
- MV-CAD involving the proximal LAD- s/p CABG x 4 (In situ BOSTON to LAD, Ao to RSVG to high diagonal, Ao to RSVG to OM, Ao to RSVG to RPDA); RLE Evh; LAAE with [address] Wallace on 08/03/23, pod #3
- Intraop KRISTOPHER: LVEF preop was found to be 35%, global with some apical hypokinesis. This was new compared to his baseline indicating acute on chronic heart failure secondary to ischemia. Following surgery his EF did improve slightly to 40-45% on
low-dose dobutamine with some better apical contractility. Index initially was 1.6 and improved to 2.2. LUIS MANUEL was verified to be free of any thrombus or debris preoperatively. A 35 mm clip was applied flush the base found to have no color flow on
completion of transesophageal echocardiogram
- Acute on chronic ischemic heart failure with EF intraoperatively of 35% from baseline of 50%
- Hyperlipidemia
- Hypertension
- Diabetes II (HgA1c 9.5)
- Class 1 obesity (BMI 31)
- Schizophrenia
- GURMEET, not on CPAP
- Chronic LBBB
- CKD 3a (Cr 1.4 preop)
- Nonsmoker
- Acute postop blood loss anemia - stable without transfusion
- Acute postop atelectasis
- Acute postop hypovolemia with subsequent hypervolemia
- ROLF on CKD
Subjective
Procedure
s/p CABG x 4 (In situ BOSTON to LAD, Ao to RSVG to high diagonal, Ao to RSVG to OM, Ao to RSVG to RPDA); RLE Evh; LAAE with [address] Wallace on 08/03/23
-
Date of Service: August 06, 2023
Objective Data
-
PT 16.0 Sec (11.4-14.6) H 08/03/23 11:56
INR 1.30 08/03/23 11:56
APTT 28.8 Sec (23.4-35.0) 08/03/23 11:56
Vital Signs
Vital Signs
Temp Pulse Resp BP Pulse Ox
98.5 F 78 20 123/60 93
08/06/23 00:00 08/06/23 00:00 08/06/23 00:00 08/06/23 00:00 08/06/23 00:00
CT Intake/Output/Weight
08/05/23 08/05/23 08/06/23
06:59 18:59 06:59
Intake Total 282.6 / 716.5 575.8 / 1120.2 544.4 / 1120.2
Output Total 460 / 655 1170 / 1725 555 / 1725
Balance -177.4 / 61.5 -594.2 / -604.8 -10.6 / -604.8
SaO2: 93
Physical Exam
-
General: Awake
Cardiovascular: Regular rate & rhythm
Respiratory: Clear
Sternum: Stable
Incision: Clean, Dry and Intact
Extremities: Edema +1
[2023-08-06 01:57] LABS: Glucose - Point of Care 364 mg/dl (70-99)
[2023-08-06] MEDS: NOVOLOG FLEXPEN 12 UNITS SC (02:13)
--- NOTE | 2023-08-06 04:00 | PTCARENOTE ---
Pt assessment unchanged; AM labs drawn; continuing to monitor BG; BG is still > 300 but is trending down; CVPA aware; call within reach; will continue to monitor.
[2023-08-06 04:02] LABS: Glucose - Point of Care 320 mg/dl (70-99)
[2023-08-06 04:10] LABS: Mixed Venous O2 Saturation 57.9 %
[2023-08-06 04:17] LABS: Hematocrit 25.6 % (39.0-52.0); Hemoglobin 8.7 g/dL (13.0-18.0); Mean Corpuscular Hgb 28.8 pg (27.0-31.0); Mean Corpuscular Volume 84.8 fL (80.0-94.0); Platelet Count 242 10^3/uL (130-400); Red Blood Cell Count 3.02 10^6/uL (4.70-6.10); Red Cell Dist. Width 14.8 % (11.5-14.5); White Blood Cell Count 13.7 10^3/uL (4.8-10.8)
[2023-08-06 04:43] LABS: Blood Urea Nitrogen 62 mg/dl (9-20); Carbon Dioxide 24 mmol/L (22-30); Chloride 102 mmol/L (98-107); Estimated Creatinine Clearance 37 ml/min; Glucose 267 mg/dl (70-99); Potassium 3.8 mmol/L (3.5-5.1); Sodium 133 mmol/L (135-145); eGFR 32.83
[2023-08-06 04:51] LABS: Magnesium 2.7 mg/dl (1.6-2.3)
[2023-08-06 05:12] LABS: Glucose - Point of Care 262 mg/dl (70-99)
[2023-08-06] MEDS: TYLENOL 1000 MG PO ×3 (06:31→21:49)
[2023-08-06 06:34] LABS: Glucose - Point of Care 296 mg/dl (70-99)
[2023-08-06] MEDS: NOVOLOG FLEXPEN 6 UNITS SC (06:35)
[2023-08-06] MEDS: ROXICODONE 5 MG PO (06:38)
[2023-08-06] MEDS: KLOR-CON 20 MEQ PO (06:38)
[2023-08-06] MEDS: SENOKOT-S 1 TABLET PO ×2 (07:47→20:03)
[2023-08-06] MEDS: GLUCOTROL 10 MG PO (07:47)
[2023-08-06] MEDS: PROTONIX 40 MG PO (07:47)
[2023-08-06] MEDS: LOW STRENGTH ASPIRIN 81 MG PO (07:47)
[2023-08-06] MEDS: ABILIFY 5 MG PO ×2 (07:47→20:03)
[2023-08-06] MEDS: PACERONE 200 MG PO ×3 (07:47→21:49)
[2023-08-06] MEDS: KCL 40 MEQ PO ×2 (07:47)
[2023-08-06] MEDS: BUMEX 2 MG IV ×3 (07:48→21:49)
[2023-08-06] MEDS: PLAVIX 75 MG PO (07:48)
[2023-08-06] MEDS: NEURONTIN 100 MG PO ×3 (07:48→21:50)
[2023-08-06] MEDS: LIDOCAINE 4% PATCH TOPICAL (07:48)
[2023-08-06] MEDS: BACTROBAN 2% OINTMENT 1 APPLIC NASAL ×2 (07:49→20:03)
[2023-08-06] MEDS: NOVOLOG FLEXPEN-HIGH RESISTANCE 7 UNITS SC (07:52)
--- NOTE | 2023-08-06 08:29 | PN.DE.MGMTRT ---
Insulin Management
- -
08/06/2023: Diabetes Management Consult
72 year old male electively admitted for multivessel CAD w/stable angina. He underwent coronary bypass without complications on 08/03/2023.
PMH: Systolic cardiomyopathy ejection fraction 35%, HTN, HLD, Schizophrenia, GURMEET, LBBB and T2DM.
A1C 9.5%, Cr 2.1, eGFR 32.83. Was taking Lantus 50 units @ HS, Glipizide 10mg BID, Metformin 500 mg BID, and Trulicity 1.5mg weekly.
Pt was initially management on Critical Care glycemic protocol and transitioned off to SQ and oral regimen on 08/05/23.
Pt is POD #3 s/p CABG x 4. Awake, A/O x3, sitting up in chair, offers no complaints, able to discuss diabetes management.
Noted for persistent Hyperglycemia, glucose trended up to 510 last night, FBG 267.
Current Diabetes regimen includes Lantus 15 units(increased to 40 units this AM), Glipizide 10mg BID
Will increase Lantus to his OP dose of 50 units @ HS. STOP Glipizide, pt with ROLF Cr 2.1, eGFR 32.83 today. MFM remains on hold.
Start NovoLog 10 units AC. Change to moderate corrective with meals. Discussed with pt that Oral regime is not an option at this time 2/2 ROLF.
Pt states that he is familiar wit insulin and would be okay administering insulin 4 times a day at home. He does not monitor his blood sugars at home because it was too complicated for him and his PCP instructed him to stop monitoring. He apparently
gets his blood sugar checked once a week in his PCP office.
Informed pt that home insulin use would not be ideal without glucose monitoring. Encouraged him to get script CGM from his PCP as soon as he is discharged from the hospital.
Will cont to follow
Diabetes History
- -
Type of Diabetes: 2 requiring insulin
Pre-Admission Diabetes Regimen
08/05/23 08/06/23
11:34 03:57
Creatinine 2.4 H 2.1 H
Lab Results
Hemoglobin A1c 9.5 % (4.0-5.6) H 07/31/23 11:05
Insulin Pump Settings
IP Diabetes Regimen
08/05/23 08/05/23 08/05/23
09:29 10:32 11:34
Glucose 151 H
POC Glucose 217 H 218 H 185 H
08/05/23 08/05/23 08/05/23
13:23 16:36 21:34
Glucose
POC Glucose 186 H 304 H 506 H*
08/05/23 08/06/23 08/06/23
21:45 00:17 01:56
Glucose 439 H
POC Glucose 510 H* 398 H 364 H
08/06/23 08/06/23 08/06/23
03:57 03:59 05:05
Glucose 267 H
POC Glucose 320 H 262 H
08/06/23
06:33
Glucose
POC Glucose 296 H
Meal type: Breakfast
Amount consumed: 100%
Patient Education
--- NOTE | 2023-08-06 08:33 | PTCARENOTE ---
assumed care of pt from previous shift RN, sinus rhythm on tele, BP stable, pox 93-94% on 6L NC. + peripheral pulses, +1 edema to bilateral lower extremities. Lungs diminished, coughing and deep breathing encouraged. +bs, abd distended and slightly
firm, pt denies abd pain, tolerating PO intake and states 'its always like that.' Balbuena catheter draining yellow. Surgical sites intact, cordis w KVO and dobutamine infusing, PIV flushes easily. Plan of care reviewed w the pt and questions
encouraged.
--- NOTE | 2023-08-06 08:47 | W.PN.CD ---
Today's Communication / Plan
-
Monitor diuresis this morning.
Low threshold for bumetanide gtt vs. augmentation with metolazone.
Frequent reorientation and incentive spirometry education.
Impression / Plan
-
Assessment/Plan: 72 y/o male with LBBB, hypertension, dyslipidemia, schizophrenia, GURMEET, ICM, and severe triple-vessel CAD who is now s/p CABG.
#CAD
-Chronic.
-S/P coronary artery bypass grafting x 4 (In situ BOSTON to LAD, SVG to high diagonal, SVG to OM, SVG to RPDA) on 08/03/[address] Wallace.
-S/P LAAL (#35 Atriclip).
-CI is 1.89 L/min/m2 off of norepinephrine. Titrate off dobutamine as able.
-Continue amiodarone, aspirin, atorvastatin, clopidogrel. Metoprolol currently on hold.
-Patient given LR and bumetanide yesterday. With IV bumetanide this morning, he seems to be diuresing.
-Very poor air movement and frequent misunderstanding of incentive spirometry. Frequent reorienting required.
#ICM:
-LVEF 40-50% on pre-op TTE, now 35-40% on intraoperative KRISTOPHER.
-Weight is up in spite of furosemide transitioning to bumetanide. He remains on 6LNC.
-Monitor diuresis. Hold ALL non-essential IV volume. Low threshold to augment with metolazone.
-Start GDMT as hemodynamics/renal function will tolerate (this may need to wait until the patient has been diuresed).
#HTN:
-Chronic.
-Currently recovering from surgery.
-Monitor with introduction of GDMT.
#HLD:
-Chronic, stable.
-Continue atorvastatin.
#IDDM:
-Chronic.
-Insulin gtt/meds per protocol.
-We will be adding SGLT2i as part of GDMT.
Critical Care Time = 40 minutes.
Subjective/Interval History:
Balbuena catheter placed yesterday for 600 mL.
Remains on 6LNC.
Weight is up 0.9 kg from yesterday, 4.3 kg from admission.
Bumetanide 2 mg given yesterday/today.
Hbg down to 8.7 <-- 9.2 <-- 9.7 <-- 11.3 (baseline 13.3).
Creatinine 2.1 <-- 2.4 <-- 2.5 <-- 1.9 (baseline 1.4).
DATA:
KRISTOPHER, 08/03/2023:
CONCLUSIONS
Mild to moderate left ventricular systolic dysfunction, EF 35 to 40%, mild LVH,
stage I diastolic dysfunction.
Normal right ventricular size and function.
The aorta has atheroma less than 5 mm and mild calcifications.
Mild tricuspid regurgitation.
Trace MR. Trace AI.
Presence of spontaneous echo contrast the left atrium and appendage without
thrombus, however no thrombus is seen.
Physical Exam
Vital Signs/Labs
Vital Signs
Temp Pulse Resp BP Pulse Ox
37.1 C 89 20 140/74 94
08/06/23 07:00 08/06/23 08:00 08/06/23 08:00 08/06/23 08:00 08/06/23 07:00
08/04/23 08/05/23 08/06/23
11:59 11:59 11:59
Actual Weight 98.5 kg 100.6 kg 101.5 kg
08/06/23 03:57
PT 16.0 Sec (11.4-14.6) H 08/03/23 11:56
INR 1.30 08/03/23 11:56
APTT 28.8 Sec (23.4-35.0) 08/03/23 11:56
Magnesium 2.7 mg/dl (1.6-2.3) H 08/06/23 03:57
Physical Exam
Constitutional: No acute distress and Comfortable
EENT: Anicteric and Moist mucous membranes
Cardiovascular: Rhythm & rate is regular, Pedal edema is absent, JVD pressure is normal, S1S2 is normal and Murmur/rub/gallop absent
Respiratory: Labored respirations, Wheeze Present and Other (Diffusely decreased.)
GI: Soft, Non tender, Normal bowel sounds and Distention present
Neuro/Psych: AO x 3
Data Reviewed
-
Date of Service: August 06, 2023
Medical Decision Making: Reviewed Test Results, Independent Historian Assessment and Test Interpretation
EKG: Tracing Personally Visualized and interpreted and Report Reviewed by me
Echo: Tracing Personally Visualized and interpreted and Report Reviewed by me
X-Ray/CT/US/MRI/NUC/PET: Image Personally Visualized and interpreted and Report Reviewed by me
Medical Tests (PFT, Pathology etc): Image Personally Visualized and interpreted and Report Reviewed by me
Labs: Labs Reviewed by me
[2023-08-06] MEDS: NSS IV (12:18)
[2023-08-06 12:19] LABS: Glucose - Point of Care 345 mg/dl (70-99)
[2023-08-06] MEDS: NOVOLOG FLEXPEN 10 UNITS SC (12:19)
[2023-08-06] MEDS: NOVOLOG FLEXPEN-MODERATE RESISTANCE 7 UNITS SC (12:20)
[2023-08-06 13:53] LABS: Blood Urea Nitrogen 60 mg/dl (9-20); Calcium 8.4 mg/dl (8.4-10.2); Carbon Dioxide 22 mmol/L (22-30); Chloride 102 mmol/L (98-107); Estimated Creatinine Clearance 44 ml/min; Glucose 315 mg/dl (70-99); Potassium 4.4 mmol/L (3.5-5.1); Sodium 133 mmol/L (135-145)
--- NOTE | 2023-08-06 14:42 | PTCARENOTE ---
echo completed, dobutamine d/c'ed at 1300. US at bedside at present.
--- NOTE | 2023-08-06 14:49 | CM ---
dc plans remain home when medically stable with sandi keith
--- NOTE | 2023-08-06 15:49 | CM ---
spoke to pt in room, await PT/OT evals. we discussed rehab and pt is agreeable if recommended.
--- NOTE | 2023-08-06 15:59 | PTCARENOTE ---
vss, nc 02 weaned to 2l nc, pox 92-93%.
--- NOTE | 2023-08-06 16:02 | PN.CDI ---
CDI
- -
CDI:
Physician Documentation Request
Admit Date: 08/03/23 04:[address] surgery,
Clinical Indicators:
Patient admitted with multivessel CAD; s/p CABG x 4 & LAAE 08/02.
6/ PN, 'Acute on chronic ischemic heart failure with EF intraoperatively of 35% from baseline of 50%'
08/04 (20:00) RN note,'spo2 90% on 6LNC, pt dyspneic on exertion...'
02 requirements (post extubation 08/02):
08/05/23
15:00 08/05/23
20:00 08/06/23
00:00
Nasal Cannula flow liters per minute 6 6 6
08/06/23
03:00 08/06/23
07:00
Nasal Cannula flow liters per minute 6 6
Please clarify which of the following accurately represents the patient's respiratory status following surgery:
Acute hypoxic respiratory failure (due to acute on chronic HFrEF)
Acute hypoxic respiratory failure due to other (please specify)
Hypoxia only
Other, please specify
Additional information for Respiratory Failure:
Recognized criteria for Respiratory Failure (Source: [facility] Hospitalist Jan 2013)
ABGs: (1 or more) Symptoms Indicate:
1. p)2 <60 or RA SPO2 <91% on RA 1. Tachypnea, SOB, dyspnea 1. Type as:
2. pCO2 50 and pH <7.35 2. Use of accessory muscles a. Hypoxic
3. pO2 decrease of pCO2 increase by 3. Pallor or cyanosis b. Hypercapnic
10 mmHg from baseline if known 4. Anxiety or restlessness 2. If due to procedure or due to another cause
5. Unable to speak in full sentences
Supplemental O2 of > 40% Intubation is not required
Use of terms such as suspected, likely, concern for, or probable (associated with a specific diagnosis that is being evaluated, monitored, or treated as if it exists) are acceptable and can be coded in the inpatient setting, when documented at the
time of discharge.
Thank you,
TRACY Luke RN
CDI Specialist
available via tiger text
Please use your independent medical judgment in providing your response.
[2023-08-06 17:10] LABS: Glucose - Point of Care 419 mg/dl (70-99)
[2023-08-06 17:37] LABS: Blood Urea Nitrogen 62 mg/dl (9-20); Carbon Dioxide 24 mmol/L (22-30); Estimated Creatinine Clearance 39 ml/min; eGFR 34.81
[2023-08-06 17:46] LABS: Calcium 7.9 mg/dl (8.4-10.2); Chloride 100 mmol/L (98-107); Glucose 369 mg/dl (70-99); Potassium 4.7 mmol/L (3.5-5.1); Sodium 132 mmol/L (135-145)
[2023-08-06] MEDS: NOVOLIN R 8 UNITS IV (18:24)
[2023-08-06] MEDS: NOVOLIN R INSULIN INFUSION 100 IV (18:34)
[2023-08-06 19:10] LABS: Hepatitis C Antibody Negative (Negative)
[2023-08-06 19:27] LABS: Glucose - Point of Care 455 mg/dl (70-99)
[2023-08-06] MEDS: NOVOLOG FLEXPEN SC (19:28)
[2023-08-06] MEDS: NOVOLOG FLEXPEN-MODERATE RESISTANCE SC (19:28)
--- NOTE | 2023-08-06 20:00 | PTCARENOTE ---
[facility]; pt resting comfortably in chair; pt is AAOx4; pt was assisted to the bathroom and back to bed; pt's pain increased to a 7/10, see MAR for pain management; LBBB on monitor, VSS; heart sounds audible, radial and DP pules
palpable, +1 lower right leg edema; lung sounds diminished at bases, spo2 90% on 6LNC, pt dyspneic on exertion; + BS x4 quadrants, abdomen soft non tender, round obese; pt voiding clear yellow urine via quinteros catheter; surgical sites maintained;
right IJ cordis and PIV maintained; dobutamine gtt infusing with SvO2 lab checks; pt is scheduled 08/05 for an Echo and US of left lung to evaluated possible left pleural effusion. call within reach; will continue to monitor.
--- NOTE | 2023-08-06 20:00 | PTCARENOTE ---
[facility]; pt resting comfortably in chair; pt is AAOx4;LBBB on monitor, VSS; heart sounds audible, radial and DP pules palpable, +1 lower extremity edema; lung sounds diminished at bases, spo2 92% on 2LNC; + BS x4 quadrants, abdomen
soft non tender, round obese; pt voiding clear yellow urine via quinteros catheter; surgical sites maintained; right IJ cordis and PIV maintained; insulin gtt restarted and infusing by due ongoing elevated BG; call within reach; will
continue to monitor.
[2023-08-06 20:16] LABS: Blood Urea Nitrogen 64 mg/dl (9-20); Calcium 8.3 mg/dl (8.4-10.2); Carbon Dioxide 21 mmol/L (22-30); Chloride 100 mmol/L (98-107); Estimated Creatinine Clearance 41 ml/min; Glucose 439 mg/dl (70-99); Magnesium 2.6 mg/dl (1.6-2.3); Potassium 4.8 mmol/L (3.5-5.1); Sodium 131 mmol/L (135-145); eGFR 37.02
[2023-08-06 21:31] LABS: Glucose - Point of Care 431 mg/dl (70-99)
[2023-08-06] MEDS: LIPITOR 40 MG PO (21:49)
[2023-08-06] MEDS: REMERON 30 MG PO (21:50)
--- NOTE | 2023-08-06 22:00 | PTCARENOTE ---
Pt assessment unchanged; per CVPA lab draw for elevated BG @ 2130 was delayed to assess the need of yet another lab draw. BG was rechecked and lab drawn was unnecessary, BG was < 400. Insulin gtt adjusted according to worklist. will continue to
monitor.
[2023-08-06 22:36] LABS: Glucose - Point of Care 391 mg/dl (70-99)
[2023-08-06 23:45] LABS: Glucose - Point of Care 318 mg/dl (70-99)
[2023-08-07] VITALS (21 sets, daily range): BP systolic 105–152; BP diastolic 46–76; PULSE 85–87; O2SAT 90–93; BMI 32.7
[2023-08-07 00:54] LABS: Glucose - Point of Care 222 mg/dl (70-99)
[2023-08-07 02:06] LABS: Glucose - Point of Care 163 mg/dl (70-99)
[2023-08-07] MEDS: NOVOLIN R INSULIN INFUSION 100 IV (02:57)
[2023-08-07 03:17] LABS: Glucose - Point of Care 138 mg/dl (70-99)
--- NOTE | 2023-08-07 03:47 | W.PN.CT ---
Today's Communication / Plan
-
Plan:
-No major issues overnight. Hemodynamically and neurologically intact
-Weaned off dobutamine gtt yesterday 08/05. Resumed home BB/Coreg @ 3.125 BID
-Left pleural effusion not enough for thoracentesis per IR
-Currently being diuresed with Bumex 2mg TID. 2+ edema noted @ RLE
-Replete electrolytes
-Cont. current meds (ASA, Plavix, Lopressor, Amio, Lipitor, Abilify, Remeron, Gabapentin)
-F/u 2-view cxr
-Encourage use of IS
-OOB into chair/Ambulate
-Maintain temporary pacing wire (will cut before d/c home)
-Home likely tomorrow
Assessment / Plan
-
- MV-CAD involving the proximal LAD- s/p CABG x 4 (In situ BOSTON to LAD, Ao to RSVG to high diagonal, Ao to RSVG to OM, Ao to RSVG to RPDA); RLE Evh; LAAE with [address] Wallace on 08/03/23, pod #4
- Intraop KRISTOPHER: LVEF preop was found to be 35%, global with some apical hypokinesis. This was new compared to his baseline indicating acute on chronic heart failure secondary to ischemia. Following surgery his EF did improve slightly to 40-45% on
low-dose dobutamine with some better apical contractility. Index initially was 1.6 and improved to 2.2. LUIS MANUEL was verified to be free of any thrombus or debris preoperatively. A 35 mm clip was applied flush the base found to have no color flow on
completion of transesophageal echocardiogram
- Acute on chronic ischemic heart failure with EF intraoperatively of 35% from baseline of 50%
- Hyperlipidemia
- Hypertension
- Diabetes II (HgA1c 9.5)
- Class 1 obesity (BMI 31)
- Schizophrenia
- GURMEET, not on CPAP
- Chronic LBBB
- CKD 3a (Cr 1.4 preop)
- Nonsmoker
- Acute postop blood loss anemia - stable without transfusion
- Acute postop atelectasis/Pleural effusion
- Acute postop hypovolemia with subsequent hypervolemia
- ROLF on CKD
Discussed patient care with: Cardiology, Nursing, Respiratory Therapy, Pharmacy and Care Team
Subjective
Procedure
s/p CABG x 4 (In situ BOSTON to LAD, Ao to RSVG to high diagonal, Ao to RSVG to OM, Ao to RSVG to RPDA); RLE Evh; LAAE with [address] Wallace on 08/03/23
-
Date of Service: August 07, 2023
Pt c/o pleuritic chest pain, otherwise feels well
Objective Data
-
PT 16.0 Sec (11.4-14.6) H 08/03/23 11:56
INR 1.30 08/03/23 11:56
APTT 28.8 Sec (23.4-35.0) 08/03/23 11:56
Vital Signs
Vital Signs
Temp Pulse Resp BP Pulse Ox
98.5 F 73 18 110/59 95
08/07/23 00:00 08/07/23 03:00 08/07/23 03:00 08/07/23 03:00 08/07/23 03:00
CT Intake/Output/Weight
08/06/23 08/06/23 08/07/23
06:59 18:59 06:59
Intake Total 620.4 / 1312.3 642.7 / 1274.2 631.5 / 1274.2
Output Total 1090 / 2300 2765 / 4015 1250 / 4015
Balance -469.6 / -987.7 -2122.3 / -2740.8 -618.5 / -2740.8
SaO2: 95 (2L)
Physical Exam
-
General: Awake, Oriented and AOx3
Cardiovascular: Regular rate & rhythm, No Murmurs, No Rub and No Gallop
Respiratory: Decreased Breath Sounds (rhonchi @ left base)
Sternum: Stable
Incision: Clean, Dry, Intact and Dressing Intact
Extremities: Edema +2 (on RLE, trace edema on LLE)
Data Reviewed
-
Lab Results: Results Reviewed
Medications: Active Meds Reviewed
Chest X-Ray: Report Reviewed and Image Reviewed
ECG: Report Reviewed and Image Reviewed
--- NOTE | 2023-08-07 04:00 | PTCARENOTE ---
Pt assessment unchanged; NSR on monitor VSS; labs drawn and sent; pt resting comfortably in bed; call within reach; will continue to monitor.
[2023-08-07 04:11] LABS: Hematocrit 27.4 % (39.0-52.0); Hemoglobin 9.4 g/dL (13.0-18.0); Mean Corp Hgb Conc. 34.3 g/dL (33.0-37.0); Mean Corpuscular Hgb 29.4 pg (27.0-31.0); Mean Corpuscular Volume 85.6 fL (80.0-94.0); Mean Platelet Volume 10.4 fL (7.4-10.4); Platelet Count 313 10^3/uL (130-400); Red Cell Dist. Width 14.7 % (11.5-14.5); White Blood Cell Count 12.7 10^3/uL (4.8-10.8)
[2023-08-07 04:40] LABS: Blood Urea Nitrogen 58 mg/dl (9-20); Calcium 8.3 mg/dl (8.4-10.2); Carbon Dioxide 26 mmol/L (22-30); Chloride 104 mmol/L (98-107); Estimated Creatinine Clearance 44 ml/min; Glucose 118 mg/dl (70-99); Magnesium 2.6 mg/dl (1.6-2.3); Potassium 3.9 mmol/L (3.5-5.1); Sodium 139 mmol/L (135-145)
[2023-08-07 05:12] LABS: Glucose - Point of Care 111 mg/dl (70-99)
[2023-08-07] MEDS: TYLENOL 1000 MG PO ×3 (05:18→22:21)
[2023-08-07 06:55] LABS: Glucose - Point of Care 135 mg/dl (70-99)
--- NOTE | 2023-08-07 07:38 | W.PN.CD ---
Today's Communication / Plan
-
Cont IV diuresis
GDMT on hold for recovering ROLF
Impression / Plan
-
Assessment/Plan: 72 y/o male with LBBB, hypertension, dyslipidemia, schizophrenia, GURMEET, ICM, and severe triple-vessel CAD who is now s/p CABG.
#CAD
-Chronic.
-S/P coronary artery bypass grafting x 4 (In situ BOSTON to LAD, SVG to high diagonal, SVG to OM, SVG to RPDA) on 08/03/[address] Wallace.
-S/P LAAL (#35 Atriclip).
-Now off pressors
-Continue amiodarone, aspirin, atorvastatin, clopidogrel. Coreg 3.125 mg bid added this AM
-IV bumex for diuresis, weight today August 02 weight was 214 lbs, daily standing weights
-Appears to be more oriented today, discussed incentive spirometer with him
#ICM:
-LVEF 40-50% on pre-op TTE, now 35-40% on intraoperative KRISTOPHER.
-Weight is up in spite of furosemide transitioning to bumetanide. He remains on 6LNC.
-Monitor diuresis. Hold ALL non-essential IV volume. Low threshold to augment with metolazone.
-Start GDMT as hemodynamics/renal function will tolerate (this may need to wait until the patient has been diuresed).
#HTN:
-Chronic.
-Currently recovering from surgery.
-Monitor with introduction of GDMT.
#ROLF
- Cr 1.8 today was 1.4 on July 30, Peak was 2.5
#HLD:
-Chronic, stable.
-Continue atorvastatin.
#IDDM:
-Chronic.
-Insulin gtt/meds per protocol.
-We will be adding SGLT2i as part of GDMT.
Subjective/Interval History:
Balbuena catheter placed yesterday for 600 mL.
Remains on 6LNC.
Weight is up 0.9 kg from yesterday, 4.3 kg from admission.
Bumetanide 2 mg given yesterday/today.
Hbg down to 8.7 <-- 9.2 <-- 9.7 <-- 11.3 (baseline 13.3).
Creatinine 2.1 <-- 2.4 <-- 2.5 <-- 1.9 (baseline 1.4).
DATA:
KRISTOPHER, 08/03/2023:
CONCLUSIONS
Mild to moderate left ventricular systolic dysfunction, EF 35 to 40%, mild LVH,
stage I diastolic dysfunction.
Normal right ventricular size and function.
The aorta has atheroma less than 5 mm and mild calcifications.
Mild tricuspid regurgitation.
Trace MR. Trace AI.
Presence of spontaneous echo contrast the left atrium and appendage without
thrombus, however no thrombus is seen.
Physical Exam
Vital Signs/Labs
Vital Signs
Temp Pulse Resp BP Pulse Ox
98.6 F 76 20 120/68 90
08/07/23 04:00 08/07/23 07:00 08/07/23 06:51 08/07/23 07:00 08/07/23 06:51
08/06/23 08/07/23 08/08/23
06:59 06:59 06:59
Actual Weight 223 lb 12.307 oz 221 lb 1.978 oz
08/07/23 03:16
08/07/23 03:16
PT 16.0 Sec (11.4-14.6) H 08/03/23 11:56
INR 1.30 08/03/23 11:56
APTT 28.8 Sec (23.4-35.0) 08/03/23 11:56
Magnesium 2.6 mg/dl (1.6-2.3) H 08/07/23 03:16
Physical Exam
Constitutional: No acute distress
EENT: Anicteric
Cardiovascular: Rhythm & rate is regular and Pedal edema present (trivial )
Respiratory: Respiratory effort normal and Lungs clear to auscul.
GI: Soft
Neuro/Psych: Alert and Oriented
Data Reviewed
-
Date of Service: August 07, 2023
EKG: Tracing Personally Visualized and interpreted (sr)
Echo: Report Reviewed by me
Labs: Labs Reviewed by me
[2023-08-07] MEDS: NOVOLOG FLEXPEN 4 UNITS SC (07:44)
[2023-08-07 07:46] LABS: Glucose - Point of Care 126 mg/dl (70-99)
[2023-08-07] MEDS: LOW STRENGTH ASPIRIN 81 MG PO (08:57)
[2023-08-07] MEDS: COREG 3.125 MG PO ×2 (08:57→19:52)
[2023-08-07] MEDS: FLOMAX 0.400000000000000022 MG PO (08:57)
[2023-08-07] MEDS: ROXICODONE 5 MG PO ×3 (08:57→20:40)
[2023-08-07] MEDS: ABILIFY 5 MG PO ×2 (08:57→19:52)
[2023-08-07] MEDS: PLAVIX 75 MG PO (08:57)
[2023-08-07] MEDS: BACTROBAN 2% OINTMENT 1 APPLIC NASAL (08:58)
[2023-08-07] MEDS: BUMEX 2 MG IV ×3 (08:58→22:21)
[2023-08-07] MEDS: PACERONE 200 MG PO ×3 (08:58→22:43)
[2023-08-07] MEDS: LIDOCAINE 4% PATCH 1 PATCH TOPICAL (08:58)
[2023-08-07] MEDS: NEURONTIN 100 MG PO ×3 (08:58→22:21)
[2023-08-07] MEDS: PROTONIX 40 MG PO (08:58)
[2023-08-07] MEDS: NSS IV (08:59)
[2023-08-07] MEDS: SENOKOT-S PO ×2 (08:59→19:53)
--- NOTE | 2023-08-07 09:00 | PTCARENOTE ---
Resumed care of patient. Walking rounds completed with previous RN. Pt assessed while he was sitting in the chair. Pt alert and oriented x4. Pt rates sternal pain 5/10-see MAR. C/o SOB with activity. Denies nausea. BROOKE with equal strength
throughout. 1 assist to stand and walk into the bathroom. +BM. SR with LBBB on tele with rates in the 80s. BP 120/56. Heart tones audible. Bilateral radial and DP pulses palpable. +1 generalized edema. POX 90% on RA. Lungs diminished in the bases.
No cough noted. IS encouraged-750mL achieved. Abdomen soft, round, nontender. +BS. Balbuena catheter intact draining adequate amounts of clear yellow urine. Balbuena d/c per orders. Sternal incision approximated with skin glue-SIRISHA. Old chest tube sites
open, not approximated, not draining, SIRISHA. Right groin puncture site approximated with skin glue, CD MANUFACTURING SUPERVISOR. Right SVG approximated with skin glue-SIRISHA. Right IJ cordis intact infusing NSS KVO and insulin gtt per Critical Care Glycemic Protocol. Left AC
20g PIV intact. Cordis d/c per orders, pt tolerated. See MAR for mediation administration. See worklist for complete nursing assessment. Plan of care reviewed and patient in agreement.
[2023-08-07 09:11] LABS: Glucose - Point of Care 273 mg/dl (70-99)
--- NOTE | 2023-08-07 09:50 | PN.DE.MGMTRT ---
Insulin Management
- -
08/07/2023: Diabetes Management Consult Follow up
Patient admitted for multivessel CAD w/stable angina. He underwent coronary bypass without complications on 08/03/2023.
PMH: Systolic cardiomyopathy ejection fraction 35%, HTN, HLD, Schizophrenia, GURMEET, LBBB and T2DM.
A1C 9.5%, Cr 2.1, eGFR 32.83. Was taking Lantus 50 units DAILY in AM, Glipizide 10mg BID, Metformin 500 mg BID, and Trulicity 1.5mg weekly.
Pt was initially management on Critical Care glycemic protocol and transitioned off to SQ and oral regimen on 08/05/23.
Pt is POD #4 s/p CABG x 4. Awake, A/O x3, sitting up in chair, offers no complaints, able to discuss diabetes management.
Noted for persistent Hyperglycemia, glucose trended up to 510 08/04, FBG yesterday 296m yo to 400's. Insulin infusion restarted, required 13 to 16 units per hour.
Will transition from oral meds to ac novolog and resume AM lantus. After 50 units lantus administered please wait 2 hours to stop drip.
Start NovoLog 5 units AC with low corrective. Discussed with pt that Oral regime is not an option at this time, he is agreeable.
Pt states that he is familiar with insulin and would be okay administering insulin 4 times a day at home. He does not monitor his blood sugars at home because it was too complicated for him and his PCP instructed him to stop monitoring. He
apparently gets his blood sugar checked once a week in his PCP office.
Informed pt that home insulin use would not be ideal without glucose monitoring. Encouraged him to get script CGM from his PCP as soon as he is discharged from the hospital.
Will provide monitor and instruction, he is agreeable.
Will cont to follow
Diabetes History
- -
Type of Diabetes: 2 requiring insulin
Pre-Admission Diabetes Regimen
08/06/23 08/06/23 08/06/23
13:03 17:16 19:40
Creatinine 1.8 H 2.0 H 1.9 H
08/07/23
03:16
Creatinine 1.8 H
Lab Results
Hemoglobin A1c 9.5 % (4.0-5.6) H 07/31/23 11:05
Insulin Pump Settings
IP Diabetes Regimen
08/06/23 08/06/23 08/06/23
12:18 13:03 17:08
Glucose 315 H
POC Glucose 345 H 419 H
08/06/23 08/06/23 08/06/23
17:16 19:26 19:40
Glucose 369 H 439 H
POC Glucose 455 H*
08/06/23 08/06/23 08/06/23
21:30 22:34 23:43
Glucose
POC Glucose 431 H 391 H 318 H
08/07/23 08/07/23 08/07/23
00:14 00:52 02:05
Glucose Cancelled
POC Glucose 222 H 163 H
08/07/23 08/07/23 08/07/23
03:16 05:11 06:54
Glucose 118 H
POC Glucose 138 H 111 H 135 H
08/07/23 08/07/23
07:42 09:09
Glucose
POC Glucose 126 H 273 H
Patient Education
[2023-08-07] MEDS: LANTUS 0.5 UNITS SC (10:20)
[2023-08-07 10:21] LABS: Glucose - Point of Care 316 mg/dl (70-99)
[2023-08-07 11:06] LABS: Glucose - Point of Care 224 mg/dl (70-99)
--- NOTE | 2023-08-07 12:00 | PTCARENOTE ---
Pt reassessed. Pt states he is sleepy and feels more tired today. Encouraged patient to get OOB for meals and then can nap this afternoon. VSS. NSR with LBBB on tele with rates in the 80s. BP stable 105/58. POX 90% on RA. Surgical sites stable.
Bladder scanned for 508mL, straight cathed for 550mL around 1130. Pt tolerated. Glycemic d/c per orders.
[2023-08-07] MEDS: FLEXBUMIN 100 IV (12:18)
[2023-08-07] MEDS: NOVOLOG FLEXPEN-LOW RESISTANCE 300 UNITS SC (12:20)
[2023-08-07] MEDS: NOVOLOG FLEXPEN 5 UNITS SC ×3 (12:21→22:44)
[2023-08-07 12:23] LABS: Glucose - Point of Care 138 mg/dl (70-99)
[2023-08-07] MEDS: KCL 40 MEQ PO (12:29)
[2023-08-07] MEDS: FLEXERIL 5 MG PO (13:01)
--- NOTE | 2023-08-07 14:18 | CM ---
prices for meds- pt has [facility] for perscriptions- all brand name meds are $15/month
--- NOTE | 2023-08-07 14:29 | CM ---
spoke with pt in room, he is agreeable to PT/OT recomm for SNF. he is agreeable to [facility]. referral faxed, awaiting bed avail.
--- NOTE | 2023-08-07 15:41 | PTCARENOTE ---
Addendum entered by Odessa Reardon RN 08/07/23 15:52:
BS result 157 mg/dl, 2 hr post Lunch.
Original Note:
Diabetes Education-Met with Mr. Wilkinson for glucometer instructions. Currently taking Glipizide 10 mg BID, Lantus 50 units in am, Metformin 500 mg BID and Trulicity 1.5.mf weekly. He does not monitor at home, will go to his PCP office weekly for a BS
check and to restock his Lantus insulin pen. Provided with and instructions given on the Contour Next EZ glucometer. He needed many verbal cues during repeat demonstration and had some difficulty with the lancing device. Currently injects Lantus in
his outer thigh, suggest Novolog in his abdomen. Reinforced to check his blood sugar, inject the Novolog and Lantus (which he takes in the morning) and eat in 15 minutes. This information marked in the take home education booklet. Reviewed proper
use of insulin pen. He will need reinforcement on use of glucometer.
--- NOTE | 2023-08-07 16:30 | PTCARENOTE ---
Pt reassessed. VSS. SR with LBBB with rates in the 70s. BP stable 112/46. POX 91% on RA. Surgical sites stable. Bladder scanned for 291mL. Assisted OOB to chair for dinner. No other acute changes from previous assessment.
[2023-08-07] MEDS: NOVOLOG FLEXPEN-LOW RESISTANCE 2 UNITS SC (17:04)
[2023-08-07 17:07] LABS: Glucose - Point of Care 230 mg/dl (70-99)
--- NOTE | 2023-08-07 18:38 | PTCARENOTE ---
Bladder scanned for 581mL. Pt unable to void and reports no urge to void. CT PHOTOGRAPHIC EQUIPMENT MECHANIC notified. Orders to wait for another hour and then bladder scan/see if pt has urge to void.
--- NOTE | 2023-08-07 20:00 | PTCARENOTE ---
Received pt from [facility]; pt resting comfortably in chair; pt assisted to bathroom for BM (unable) and assisted back to bed; AAOx4, pain is 7/10, see MAR; NSR with LBBB on monitor, VSS; heart sounds audible, radial and DP pulses palpable, trace
generalized edema; lung sounds diminished at b/l bases, spo2 93% on RA; + bs x4 quadrants, abdomen soft, non tender, round, obese; pt voiding clear yellow urine, ongoing urine retention with bladder scans throughout the day, per CVPA pt is to be
straight catheterized when bladder scan shows > 400ml until pt can void on his own; surgical sites are maintained; PIV maintained; pt's discharge plan is placement at a SNF; call within reach; will continue to monitor.
--- NOTE | 2023-08-07 20:20 | PTCARENOTE ---
Pt bladder scanned for 475ml and straight catheterized for 575ml; per CVPA pt will be bladder scanned again at 0000; will continue to monitor.
[2023-08-07 22:21] LABS: Glucose - Point of Care 389 mg/dl (70-99)
[2023-08-07] MEDS: REMERON 30 MG PO (22:21)
[2023-08-07] MEDS: LIPITOR 40 MG PO (22:21)
--- NOTE | 2023-08-07 22:50 | PTCARENOTE ---
HS BG was 389, 5 units of novolog given per CVPA; will continue to monitor.
[2023-08-08] VITALS (12 sets, daily range): BP systolic 89–136; BP diastolic 35–63; BMI 32.9
--- NOTE | 2023-08-08 | PTCARENOTE ---
Pt assessment unchanged; resting comfortably in bed; call within reach; will continue to monitor.
[2023-08-08 00:08] LABS: Glucose - Point of Care 302 mg/dl (70-99)
--- NOTE | 2023-08-08 00:35 | PTCARENOTE ---
pt bladder scanned at 0000 for 575mls; pt assisted to bathroom to attempt to void; pt voided 200mls; PVR was 395; CVPA made aware and does not want straight cath at this time and requested repeat bladder scan at 0300; will continue to monitor.
[2023-08-08] MEDS: ROXICODONE 5 MG PO ×3 (00:51→10:13)
[2023-08-08] MEDS: NOVOLOG FLEXPEN 4 UNITS SC (00:52)
[2023-08-08 02:54] LABS: Hemoglobin 8.8 g/dL (13.0-18.0); Mean Corp Hgb Conc. 33.8 g/dL (33.0-37.0); Mean Corpuscular Hgb 29.1 pg (27.0-31.0); Mean Corpuscular Volume 86.1 fL (80.0-94.0); Mean Platelet Volume 9.6 fL (7.4-10.4); Platelet Count 308 10^3/uL (130-400); Red Blood Cell Count 3.02 10^6/uL (4.70-6.10); White Blood Cell Count 11.7 10^3/uL (4.8-10.8)
[2023-08-08 03:19] LABS: Blood Urea Nitrogen 61 mg/dl (9-20); Calcium 8.5 mg/dl (8.4-10.2); Carbon Dioxide 27 mmol/L (22-30); Chloride 102 mmol/L (98-107); Estimated Creatinine Clearance 39 ml/min; Glucose 246 mg/dl (70-99); Magnesium 2.4 mg/dl (1.6-2.3); Potassium 4.6 mmol/L (3.5-5.1); Sodium 136 mmol/L (135-145); eGFR 34.81
--- NOTE | 2023-08-08 04:00 | PTCARENOTE ---
Pt assessment unchanged; NSR with LBBB and VSS; pt was bladder scanned at 0230 for 659mls, tried and voided 100mls, PRV was 533, straight cathed for 550. will continue to monitor.
[2023-08-08] MEDS: TYLENOL 1000 MG PO ×3 (06:01→20:08)
--- NOTE | 2023-08-08 06:23 | W.PN.CT ---
Today's Communication / Plan
-
-pod #5
-c/o chest tightness, different from preop sxs - suspect incisional pain, feels better with pain meds and O2 on.
-has L pleural effusion - appears better after diuresed with tid Bumex on 08/06. UO 1425+/1975+ in 12/24 hrs
-continues to have urinary retention - straight cathed twice overnight for over 500cc- continue Flomax
-elevated BG - on ISS, appreciate DM input
-Cr 2.0 today (1.8 on 08/06, 1.4 preop)- follow
-continue Bumex
-encourage IS, OOB
-continue PT/OT. Will need rehab when ready for discharge
Assessment / Plan
-
- MV-CAD involving the proximal LAD- s/p CABG x 4 (In situ BOSTON to LAD, Ao to RSVG to high diagonal, Ao to RSVG to OM, Ao to RSVG to RPDA); RLE Evh; LAAE with [address] Wallace on 08/03/23, pod #5
- Intraop KRISTOPHER: LVEF preop was found to be 35%, global with some apical hypokinesis. This was new compared to his baseline indicating acute on chronic heart failure secondary to ischemia. Following surgery his EF did improve slightly to 40-45% on
low-dose dobutamine with some better apical contractility. Index initially was 1.6 and improved to 2.2. LUIS MANUEL was verified to be free of any thrombus or debris preoperatively. A 35 mm clip was applied flush the base found to have no color flow on
completion of transesophageal echocardiogram
- Acute on chronic ischemic heart failure with EF intraoperatively of 35% from baseline of 50%
- Hyperlipidemia
- Hypertension
- Diabetes II (HgA1c 9.5)
- Class 1 obesity (BMI 31)
- Schizophrenia
- GURMEET, not on CPAP
- Chronic LBBB
- CKD 3a (Cr 1.4 preop)
- Nonsmoker
- Acute postop blood loss anemia - stable without transfusion
- Acute postop atelectasis/Pleural effusion
- Acute postop hypovolemia with subsequent hypervolemia
- ROLF on CKD
- Acute postop L pleural effusion
- Acute postop urinary retention
Discussed patient care with: Nursing and Care Team
Subjective
Procedure
s/p CABG x 4 (In situ BOSTON to LAD, Ao to RSVG to high diagonal, Ao to RSVG to OM, Ao to RSVG to RPDA); RLE Evh; LAAE with [address] Wallace on 08/03/23
-
Date of Service: August 08, 2023
Objective Data
-
Lab Results
08/08/23 02:44
08/08/23 02:44
PT 16.0 Sec (11.4-14.6) H 08/03/23 11:56
INR 1.30 08/03/23 11:56
APTT 28.8 Sec (23.4-35.0) 08/03/23 11:56
Vital Signs
Vital Signs
Temp Pulse Resp BP Pulse Ox
98.5 F 67 20 92/43 94
08/08/23 04:00 08/08/23 04:08 08/08/23 04:00 08/08/23 04:08 08/08/23 04:08
CT Intake/Output/Weight
08/07/23 08/07/23 08/08/23
06:59 18:59 06:59
Intake Total 673.0 / 1315.7 1075 / 1075
Output Total 1425 / 4190 / 0 1424 / 2049
Balance -752.0 / -2874.3 450 / -975 -1425 / -975
SaO2: 94
Physical Exam
-
General: Awake and AOx3
Cardiovascular: Regular rate & rhythm, No Murmurs and Rub
Respiratory: Decreased Breath Sounds
Sternum: Stable
Incision: Clean, Dry and Intact
Extremities: Other (R with 1 + edema (site of EVH); L with trace edema)
Abdomen: moderately distended, tympanic, nontender, + BM, + flatus
Data Reviewed
-
Lab Results: Results Reviewed
Medications: Active Meds Reviewed
Chest X-Ray: Report Reviewed and Image Reviewed
ECG: Report Reviewed and Image Reviewed
[2023-08-08] MEDS: NOVOLOG FLEXPEN 5 UNITS SC (07:32)
[2023-08-08] MEDS: NOVOLOG FLEXPEN-LOW RESISTANCE 4 UNITS SC ×3 (07:32→17:14)
[2023-08-08 07:35] LABS: Glucose - Point of Care 313 mg/dl (70-99)
[2023-08-08] MEDS: LOW STRENGTH ASPIRIN 81 MG PO (07:41)
[2023-08-08] MEDS: FLUSH (NSS) 1 FLUSH IV (07:41)
[2023-08-08] MEDS: ABILIFY 5 MG PO ×2 (07:41→20:05)
[2023-08-08] MEDS: LIDOCAINE 4% PATCH 1 PATCH TOPICAL (07:41)
[2023-08-08] MEDS: PROTONIX 40 MG PO (07:41)
[2023-08-08] MEDS: FLOMAX 0.400000000000000022 MG PO (07:41)
[2023-08-08] MEDS: COREG 3.125 MG PO (07:41)
[2023-08-08] MEDS: PLAVIX 75 MG PO (07:41)
[2023-08-08] MEDS: NSS IV (07:42)
[2023-08-08] MEDS: NEURONTIN 100 MG PO ×3 (07:42→20:05)
[2023-08-08] MEDS: PACERONE 200 MG PO ×3 (07:42→20:06)
[2023-08-08] MEDS: SENOKOT-S PO ×2 (07:42→20:09)
[2023-08-08] MEDS: BUMEX 2 MG IV ×2 (07:42→20:09)
--- NOTE | 2023-08-08 07:45 | PTCARENOTE ---
Resumed care of patient. Walking rounds completed. Pt assessed while he was sitting in the chair. Pt alert and oriented x3. Pt rates sternal pain 1/10. Denies shortness of breath and nausea. BROOKE with equal strength throughout. SR with LBBB on tele
with rates in the 70s-80s. BP stable 112/56. Bilateral radial and DP pulses palpable. Trace edema to b/l lower extremities. Heart tones audible. POX 92% on RA. Lungs diminished in the bases. IS encouraged-750mL achieved. Occasional moist
nonproductive cough. Abdomen soft, round, obese, nontender. +BS. BM yesterday. Due to void for this RN. Sternal incision approximated with skin glue, [employer]. Old chest tube sites open, not approximated, [employer]. Right groin puncture site approximated, SIRISHA.
Right knee incision approximated and [employer]. Left AC 20g PIV intact. See MAR for medication administration. See worklist for complete nursing assessment. Plan of care reviewed and pt in agreement.
[2023-08-08] MEDS: LANTUS 0.5 UNITS SC (07:48)
[2023-08-08] MEDS: FLEXBUMIN 50 IV (07:48)
--- NOTE | 2023-08-08 08:43 | PN.DE.MGMTRT ---
Insulin Management
- -
08/08/2023: Diabetes Management Consult Follow up
Patient admitted for multivessel CAD w/stable angina. He underwent coronary bypass without complications on 08/03/2023.
PMH: Systolic cardiomyopathy ejection fraction 35%, HTN, HLD, Schizophrenia, GURMEET, LBBB and T2DM.
A1C 9.5%, Cr 2.1, eGFR 32.83. Was taking Lantus 50 units DAILY in AM, Glipizide 10mg BID, Metformin 500 mg BID, and Trulicity 1.5mg weekly.
Pt was initially management on Critical Care glycemic protocol and transitioned off to SQ and oral regimen on 08/05/23.
Pt is POD #5 s/p CABG x 4. Awake, A/O x3, sitting up in chair, offers no complaints, able to discuss diabetes management.
Transitioned from insulin infusion to AC novolog and AM lantus 50 units yesterday. Glucose trended up to 230, 289 requiring corrective insulin.
CM reached out concerned that patient is unable to prepare and take insulin. His primary care provider prepares one week of syringes, 50 units lantus for him. Patient takes a train and an uber to have his glucose checked in their office and pick
up his week of syringes with lantus. He is also given his trulicity at that time. She has spoken to the patients doctors office both CM and the office feel it would be to complex for patient.
Restarted glipizide 10 mg BID, added Farxiga 10 mg daily. Did increase AC novolog, will reassess pre lunch to determine if dose can be reduced.
Diabetes History
- -
Type of Diabetes: 2 requiring insulin
Pre-Admission Diabetes Regimen
08/08/23
02:44
Creatinine 2.0 H
Lab Results
Hemoglobin A1c 9.5 % (4.0-5.6) H 07/31/23 11:05
Insulin Pump Settings
IP Diabetes Regimen
08/07/23 08/07/23 08/07/23
09:09 10:18 11:03
Glucose
POC Glucose 273 H 316 H 224 H
08/07/23 08/07/23 08/07/23
12:20 17:03 22:19
Glucose
POC Glucose 138 H 230 H 389 H
08/08/23 08/08/23 08/08/23
00:07 02:44 07:30
Glucose 246 H
POC Glucose 302 H 313 H
Meal type: Breakfast
Meal type: Breakfast
Amount consumed: 100%
Amount consumed: 100%
Patient Education
--- NOTE | 2023-08-08 09:00 | PTCARENOTE ---
Bladder scanned for 461. CT LABORATORY MONITOR notified. Orders to place quinteros catheter obtained d/t retention and straight cath several times. Quinteros inserted without issue. Pt tolerated. Drained 550mL clear yellow urine. Stat lock applied.
--- NOTE | 2023-08-08 09:29 | W.PN.CD ---
Today's Communication / Plan
-
Augment diuresis with metolazone.
Monitor renal function.
GDMT as hemodynamics/renal function will permit.
Impression / Plan
-
Assessment/Plan: 72 y/o male with LBBB, hypertension, dyslipidemia, schizophrenia, GURMEET, ICM, and severe triple-vessel CAD who is now s/p CABG.
#CAD
-Chronic.
-S/P coronary artery bypass grafting x 4 (In situ BOSTON to LAD, SVG to high diagonal, SVG to OM, SVG to RPDA) on 08/03/[address] Wallace.
-S/P LAAL (#35 Atriclip).
-Now off pressors
-Continue amiodarone, aspirin, atorvastatin, clopidogrel. Change carvedilol to metoprolol 12.5 mg daily in light of hypotension.
-Encourage incentive spirometry, ambulation.
-Augment bumetanide with metolazone 5 mg 30 minutes prior to next bumetanide dose.
#ICM/HFmEF:
-LVEF 40-50% on pre-op TTE, now 35-40% on intraoperative KRISTOPHER.
-Start GDMT as hemodynamics/renal function will tolerate (this may need to wait until the patient has been diuresed).
-Weight fell then julissa again.
-Augment diuresis with metolazone 5 mg 30 minutes prior to next bumetanide dose.
-Maintain quinteros for accurate I/O, comfort and for urinary retention.
-Changing carvedilol to metoprolol.
#HTN:
-Chronic. Currently hypotensive.
-Currently recovering from surgery.
-Monitor with introduction of GDMT.
#ROLF
- Cr 1.8 today was 1.4 on July 30, Peak was 2.5
#HLD:
-Chronic, stable.
-Continue atorvastatin.
#IDDM:
-Chronic.
-Insulin gtt/meds per protocol.
-We will be adding SGLT2i as part of GDMT.
Subjective/Interval History:
Dobutamine weaned.
Carvedilol 3.125 mg BID started yesterday.
Quinteros pulled yesterday. Bladder US showed retention and quinteros replaced this AM with 550 mL out.
Weight is up 0.8 kg again.
Hypotensive to 89/35 @ 4:05 AM.
92% on room air.
Creatinine hovering around 2.0.
DATA:
KRISTOPHER, 08/03/2023:
CONCLUSIONS
Mild to moderate left ventricular systolic dysfunction, EF 35 to 40%, mild LVH,
stage I diastolic dysfunction.
Normal right ventricular size and function.
The aorta has atheroma less than 5 mm and mild calcifications.
Mild tricuspid regurgitation.
Trace MR. Trace AI.
Presence of spontaneous echo contrast the left atrium and appendage without
thrombus, however no thrombus is seen.
Physical Exam
Vital Signs/Labs
Vital Signs
Temp Pulse Resp BP Pulse Ox
36.7 C 73 20 112/56 92
08/08/23 07:54 08/08/23 09:00 08/08/23 07:54 08/08/23 07:54 08/08/23 07:54
08/06/23 08/07/23 08/08/23
11:59 11:59 11:59
Actual Weight 101.5 kg 100.3 kg 101.1 kg
08/08/23 02:44
08/08/23 02:44
PT 16.0 Sec (11.4-14.6) H 08/03/23 11:56
INR 1.30 08/03/23 11:56
APTT 28.8 Sec (23.4-35.0) 08/03/23 11:56
Magnesium 2.4 mg/dl (1.6-2.3) H 08/08/23 02:44
Physical Exam
Constitutional: No acute distress and Comfortable
EENT: Anicteric and Moist mucous membranes
Cardiovascular: Rhythm & rate is regular, Pedal edema present, JVD present, S1S2 is normal and Murmur/rub/gallop absent
Respiratory: Wheeze Absent, Rhonchi Absent and Crackles Present
GI: Soft, Distention absent, Flat, Non tender and Normal bowel sounds
Neuro/Psych: AO x 3
Data Reviewed
-
Date of Service: August 08, 2023
Medical Decision Making: Reviewed Test Results, Independent Historian Assessment and Test Interpretation
EKG: Tracing Personally Visualized and interpreted and Report Reviewed by me
Echo: Tracing Personally Visualized and interpreted and Report Reviewed by me
X-Ray/CT/US/MRI/NUC/PET: Image Personally Visualized and interpreted and Report Reviewed by me
Medical Tests (PFT, Pathology etc): Image Personally Visualized and interpreted and Report Reviewed by me
Labs: Labs Reviewed by me
[2023-08-08] MEDS: FARXIGA 10 MG PO (09:33)
[2023-08-08] MEDS: GLUCOTROL 10 MG PO ×2 (09:33→17:14)
[2023-08-08] MEDS: FLEXERIL 5 MG PO (10:13)
[2023-08-08 12:26] LABS: Glucose - Point of Care 346 mg/dl (70-99)
[2023-08-08] MEDS: NOVOLOG FLEXPEN 10 UNITS SC ×2 (12:32→17:14)
[2023-08-08] MEDS: ZAROXOLYN 5 MG PO (12:34)
--- NOTE | 2023-08-08 12:38 | PTCARENOTE ---
Pt reassessed. VSS. Surgical sites stable. Balbuena draining adequate amounts of clear yellow urine. Pt ambulated in the [place] 25' with rolling walker, then assisted to chair.
--- NOTE | 2023-08-08 15:53 | PTCARENOTE ---
Pt reassessed. VSS. Encouraged pt to sit in the chair rather than lie in bed. Encouraged coughing and deep breathing. Surgical sites stable. Balbuena draining adequate clear yellow urine.
[2023-08-08 17:17] LABS: Glucose - Point of Care 300 mg/dl (70-99)
[2023-08-08 17:40] LABS: Blood Urea Nitrogen 64 mg/dl (9-20); Calcium 8.6 mg/dl (8.4-10.2); Carbon Dioxide 28 mmol/L (22-30); Chloride 97 mmol/L (98-107); Estimated Creatinine Clearance 39 ml/min; Glucose 253 mg/dl (70-99); Potassium 4.2 mmol/L (3.5-5.1); Sodium 135 mmol/L (135-145); eGFR 34.81
--- NOTE | 2023-08-08 20:00 | PTCARENOTE ---
Resumed care of patient. Walking rounds completed. Resting in bed at time of assessment. Pt AAO x3. Complaints of sternal pain 08/12. See MAR for med dosing. SR with LBBB HR 70s-80s. VSS. pulses palpable. Trace edema. 94% on RA. Lungs diminished in
the bases. IS-750mL achieved. +BS. quinteros draining clear yellow urine. All surigcal sites hector and intact. Left AC 20g PIV. will continue ot monitor.
[2023-08-08] MEDS: ROXICODONE 2.5 MG PO (20:04)
[2023-08-08] MEDS: LIPITOR 40 MG PO (20:05)
[2023-08-08] MEDS: REMERON 30 MG PO (20:06)
[2023-08-09 00:18] VITALS: BP 119/49
[2023-08-09 00:27] LABS: Glucose - Point of Care 281 mg/dl (70-99)
--- NOTE | 2023-08-09 03:00 | PTCARENOTE ---
labs drawn and sent. no change in assessment from previous. will continue to monitor.
[2023-08-09 03:35] VITALS: BP 120/59
[2023-08-09 03:51] LABS: Hematocrit 27.8 % (39.0-52.0); Hemoglobin 9.4 g/dL (13.0-18.0); Mean Corp Hgb Conc. 33.8 g/dL (33.0-37.0); Mean Corpuscular Hgb 28.7 pg (27.0-31.0); Mean Platelet Volume 9.8 fL (7.4-10.4); Platelet Count 332 10^3/uL (130-400); Red Blood Cell Count 3.27 10^6/uL (4.70-6.10); Red Cell Dist. Width 14.8 % (11.5-14.5); White Blood Cell Count 12.9 10^3/uL (4.8-10.8)
[2023-08-09] MEDS: TYLENOL PO (03:54)
[2023-08-09 04:24] LABS: Blood Urea Nitrogen 66 mg/dl (9-20); Carbon Dioxide 28 mmol/L (22-30); Chloride 99 mmol/L (98-107); Estimated Creatinine Clearance 39 ml/min; Glucose 238 mg/dl (70-99); Magnesium 2.6 mg/dl (1.6-2.3); Potassium 4.2 mmol/L (3.5-5.1); Sodium 136 mmol/L (135-145); eGFR 34.81
[2023-08-09 06:00] VITALS: BMI 31.5
--- NOTE | 2023-08-09 06:44 | PTCARENOTE ---
oob, weighed. into chair with min assist. ordered breakfast.
[2023-08-09] MEDS: NOVOLOG FLEXPEN 10 UNITS SC (06:45)
[2023-08-09] MEDS: NOVOLOG FLEXPEN-LOW RESISTANCE 2 UNITS SC (06:46)
--- NOTE | 2023-08-09 06:46 | W.PN.CT ---
Today's Communication / Plan
-
-pod #6
-no issues overnight
-Balbuena reinserted on 08/07 for retention- plans for voiding trial at SNF
-diuresed large amount on 08/07 with bid Bumex and Zaroxolyn (UO 2500/3950 in 12/24 hrs)
-follow L pleur effusion- appears improved. Follow Radiology report
-follow Cr and lytes
-started on Toprol and Farxiga
-continue PT/OT
-plans for SNF at discharge (possibly [facility] when bed available)
-appreciate everyone's input
Assessment / Plan
-
- MV-CAD involving the proximal LAD- s/p CABG x 4 (In situ BOSTON to LAD, Ao to RSVG to high diagonal, Ao to RSVG to OM, Ao to RSVG to RPDA); RLE Evh; LAAE with [address] Wallace on 08/03/23, pod #6
- Intraop KRISTOPHER: LVEF preop was found to be 35%, global with some apical hypokinesis. This was new compared to his baseline indicating acute on chronic heart failure secondary to ischemia. Following surgery his EF did improve slightly to 40-45% on
low-dose dobutamine with some better apical contractility. Index initially was 1.6 and improved to 2.2. LUIS MANUEL was verified to be free of any thrombus or debris preoperatively. A 35 mm clip was applied flush the base found to have no color flow on
completion of transesophageal echocardiogram
- Acute on chronic ischemic heart failure with EF intraoperatively of 35% from baseline of 50%
- Hyperlipidemia
- Hypertension
- Diabetes II (HgA1c 9.5)
- Class 1 obesity (BMI 31)
- Schizophrenia
- GURMEET, not on CPAP
- Chronic LBBB
- CKD 3a (Cr 1.4 preop)
- Nonsmoker
- Acute postop blood loss anemia - stable without transfusion
- Acute postop atelectasis/Pleural effusion
- Acute postop hypovolemia with subsequent hypervolemia
- ROLF on CKD
- Acute postop L pleural effusion
- Acute postop urinary retention - started on Flomax. Balbuena reinserted on 08/08/23
Discussed patient care with: Nursing and Care Team
Subjective
Procedure
s/p CABG x 4 (In situ BOSTON to LAD, Ao to RSVG to high diagonal, Ao to RSVG to OM, Ao to RSVG to RPDA); RLE Evh; LAAE with [address] Wallace on 08/03/23
-
Date of Service: August 09, 2023
Objective Data
-
PT 16.0 Sec (11.4-14.6) H 08/03/23 11:56
INR 1.30 08/03/23 11:56
APTT 28.8 Sec (23.4-35.0) 08/03/23 11:56
Vital Signs
Vital Signs
Temp Pulse Resp BP Pulse Ox
98 F 73 18 136/45 94
08/08/23 20:00 08/08/23 22:00 08/08/23 20:00 08/08/23 20:17 08/08/23 20:17
CT Intake/Output/Weight
08/08/23 08/08/23 08/09/23
06:59 18:59 06:59
Intake Total 770 / 890 120 / 890
Output Total 1424 / 0 1450 / 3450 2000 / 3450
Balance -1425 / -975 -680 / -2560 -1880 / -2560
SaO2: 94
Physical Exam
-
General: Awake and AOx3
Cardiovascular: Regular rate & rhythm, No Murmurs and Rub
Respiratory: Decreased Breath Sounds
Sternum: Stable
Incision: Clean, Dry and Intact
Abdomen: moderately distended, tympanic, nontender, + BM, + flatus
Extremities: Other (R with 1 + edema (site of EVH); L with trace edema)
Data Reviewed
-
Lab Results: Results Reviewed
Medications: Active Meds Reviewed
Chest X-Ray: Report Reviewed and Image Reviewed
ECG: Report Reviewed and Image Reviewed
[2023-08-09] MEDS: ROXICODONE 2.5 MG PO (06:50)
--- NOTE | 2023-08-09 07:00 | PTCARENOTE ---
Bedside walking rounds report received. Patient is awake alert and oriented x 3 sitting oob in chair on room air. NSR with LBBB and slightly prolonged QT. Utilizing walker with assist of 1 to stand and ambulate to bathroom and brush teeth/wash face.
Balbuena catheter to remain at dc today to [facility] rehab for acute urinary retention. See flowrecord for remaining assessments
[2023-08-09 07:45] VITALS: BP 127/62
--- NOTE | 2023-08-09 07:46 | W.PN.CD ---
Today's Communication / Plan
-
Hold further metolazone.
Change bumetanide to 2 mg PO daily.
Monitor renal function.
Maintain quinteros catheter.
At some point, he needs ACEi/ARB/ARNi, SGLT2i, spironolactone, but needs to demonstrate renal recovery/stability.
Discharge planning per CT surgery.
Impression / Plan
-
Assessment/Plan: 72 y/o male with LBBB, hypertension, dyslipidemia, schizophrenia, GURMEET, ICM, and severe triple-vessel CAD who is now s/p CABG.
#CAD
-Chronic.
-S/P coronary artery bypass grafting x 4 (In situ BOSTON to LAD, SVG to high diagonal, SVG to OM, SVG to RPDA) on 08/03/[address] Wallace.
-S/P LAAL (#35 Atriclip).
-Now off pressors
-Continue amiodarone, aspirin, atorvastatin, clopidogrel and metoprolol.
-Encourage incentive spirometry, ambulation.
#ICM/HFmEF:
-LVEF 40-50% on pre-op TTE, now 35-40% on intraoperative KRISTOPHER.
-GDMT with metoprolol succinate.
-Increase GDMT as hemodynamics/renal function will tolerate (this may need to wait until the patient has been diuresed/renal function has stabilized).
-Maintain quinteros for accurate I/O, comfort and for urinary retention.
-Hold further metolazone and change bumetanide to 2 mg PO daily.
#HTN:
-Chronic, stable.
-Currently recovering from surgery.
-Monitor with introduction of GDMT.
#ROLF
-Creatinine stable at 2.0 today after massive diuresis yesterday.
-Creatinine may lag behind clinical picture, but the patient is clearly not volume depleted.
-Maintain quinteros catheter for urinary retention. Voiding trials planned at SNF/Rehab per surgery.
-Lowest creatinine of 1.4. He may hover close to 2.0 with CKD. Medical history does not include CKD, but he is relatively new to our system.
#HLD:
-Chronic, stable.
-Continue atorvastatin.
#IDDM:
-Chronic.
-Insulin gtt/meds per protocol.
-Eventually add SGLT2i as part of GDMT.
Subjective/Interval History:
Diuresis augmented with metolazone 5 mg yesterday.
Weight down 4.3 kg. Much closer to admission weight.
BP tolerated diuresis.
BUN/Cr 66/2.0.
DATA:
KRISTOPHER, 08/03/2023:
CONCLUSIONS
Mild to moderate left ventricular systolic dysfunction, EF 35 to 40%, mild LVH,
stage I diastolic dysfunction.
Normal right ventricular size and function.
The aorta has atheroma less than 5 mm and mild calcifications.
Mild tricuspid regurgitation.
Trace MR. Trace AI.
Presence of spontaneous echo contrast the left atrium and appendage without
thrombus, however no thrombus is seen.
Physical Exam
Vital Signs/Labs
Vital Signs
Temp Pulse Resp BP Pulse Ox
36.6 C 72 18 120/59 94
08/09/23 03:00 08/09/23 07:00 08/08/23 20:00 08/09/23 03:35 08/09/23 03:16
08/07/23 08/08/23 08/09/23
11:59 11:59 11:59
Actual Weight 100.3 kg 101.1 kg 96.8 kg
08/09/23 03:38
08/09/23 03:38
PT 16.0 Sec (11.4-14.6) H 08/03/23 11:56
INR 1.30 08/03/23 11:56
APTT 28.8 Sec (23.4-35.0) 08/03/23 11:56
Magnesium 2.6 mg/dl (1.6-2.3) H 08/09/23 03:38
Physical Exam
Constitutional: No acute distress and Comfortable
EENT: Anicteric and Moist mucous membranes
Cardiovascular: Rhythm & rate is regular, Pedal edema is absent, JVD pressure is normal, S1S2 is normal and Murmur/rub/gallop absent
Respiratory: Respiratory effort normal, Lungs clear to auscul., Wheeze Absent, Crackles Absent and Rhonchi Absent
GI: Soft, Distention absent, Flat, Non tender and Normal bowel sounds
Neuro/Psych: AO x 3
Data Reviewed
-
Date of Service: August 09, 2023
Medical Decision Making: Reviewed Test Results, Independent Historian Assessment and Test Interpretation
EKG: Tracing Personally Visualized and interpreted and Report Reviewed by me
Echo: Tracing Personally Visualized and interpreted and Report Reviewed by me
X-Ray/CT/US/MRI/NUC/PET: Image Personally Visualized and interpreted and Report Reviewed by me
Medical Tests (PFT, Pathology etc): Image Personally Visualized and interpreted and Report Reviewed by me
Labs: Labs Reviewed by me
Old Records: Reviewed
[2023-08-09 07:49] VITALS: BP 127/62
[2023-08-09] MEDS: PROTONIX 40 MG PO (08:14)
[2023-08-09] MEDS: PLAVIX 75 MG PO (08:14)
[2023-08-09] MEDS: LIDOCAINE 4% PATCH 1 PATCH TOPICAL (08:14)
[2023-08-09] MEDS: LOW STRENGTH ASPIRIN 81 MG PO (08:14)
[2023-08-09] MEDS: PACERONE 200 MG PO (08:14)
[2023-08-09] MEDS: FARXIGA 10 MG PO (08:15)
[2023-08-09] MEDS: FLOMAX 0.400000000000000022 MG PO (08:15)
[2023-08-09] MEDS: NEURONTIN 100 MG PO (08:15)
[2023-08-09] MEDS: GLUCOTROL 10 MG PO (08:15)
[2023-08-09] MEDS: ABILIFY 5 MG PO (08:15)
[2023-08-09] MEDS: TOPROL XL 12.5 MG PO (08:15)
--- NOTE | 2023-08-09 08:22 | PN.DE.MGMTRT ---
Insulin Management
- -
08/09/2023: Diabetes Management Consult Follow up
Patient admitted for multivessel CAD w/stable angina. He underwent coronary bypass without complications on 08/03/2023.
PMH: Systolic cardiomyopathy ejection fraction 35%, HTN, HLD, Schizophrenia, GURMEET, LBBB and T2DM.
A1C 9.5%, Cr 2.1, eGFR 32.83. Was taking Lantus 50 units DAILY in AM, Glipizide 10mg BID, Metformin 500 mg BID, and Trulicity 1.5mg weekly.
Pt was initially management on Critical Care glycemic protocol and transitioned off to SQ and oral regimen on 08/05/23.
Pt is POD #6 s/p CABG x 4. Awake, A/O x3, sitting up in chair, offers no complaints, able to discuss diabetes management.
CM reached out concerned that patient is unable to prepare and take insulin. His primary care provider prepares one week of syringes, 50 units lantus for him. Patient takes a train and an uber to have his glucose checked in their office and pick
up his week of syringes with lantus. He is also given his trulicity at that time. She has spoken to the patients doctors office both CM and the office feel it would be to complex for patient.
Transitioned from insulin infusion to AC novolog and AM lantus 50 units 08/06, glucose trended up to 230, 289 requiring corrective insulin.
08/07 restarted glipizide 10 mg BID, added Farxiga 10 mg daily. Did increase AC novolog to 10 units. Glucose has remained elevated. Will increase AM lantus to 55 units and AC novolog to 12 units and continue oral medications.
Patient for discharge to SNF when appropriate.
Diabetes History
- -
Type of Diabetes: 2 requiring insulin
Pre-Admission Diabetes Regimen
08/08/23 08/09/23
17:13 03:38
Creatinine 2.0 H 2.0 H
Lab Results
Hemoglobin A1c 9.5 % (4.0-5.6) H 07/31/23 11:05
Insulin Pump Settings
IP Diabetes Regimen
08/08/23 08/08/23 08/09/23
12:23 17:13 00:26
Glucose 253 H
POC Glucose 346 H 300 H 281 H
08/09/23
03:38
Glucose 238 H
POC Glucose
Meal type: Dinner
Amount consumed: 100%
Patient Education
[2023-08-09] MEDS: BUMEX 2 MG PO (08:24)
[2023-08-09] MEDS: SENOKOT-S PO (08:59)
--- NOTE | 2023-08-09 09:28 | W.DCSUMMARY ---
Discharge Summary
Discharge Data
Date of Admission: 08/03/23
Date of Discharge: 08/09/23
-
Pending Results: No
Hospital Course
Primary care physician: Pollo Bella
Outpatient copier technician: Raghav Yao
Inpatient consultants: [facility] cardiology, mail agent, diabetes [employer]
Procedures:
1. Coronary artery bypass grafting with left atrial appendage clip
Primary Diagnosis:
1. Multivessel coronary artery disease
Secondary Diagnoses:
1. Acute on chronic ischemic heart failure with intra-op EF 35% from baseline of 50%
3. Hyperlipidemia
4. Hypertension
5. Type 2 Diabetes (A1C 9.5)
6. Schizophrenia
7. GURMEET-no CPAP
8. Pre-existing left bundle branch block
9. Acute kidney injury on chronic kidney disease (3b)
10. Acute postop urinary retention
HPI: 72-year-old male was electively admitted on 08/03/2023 for coronary artery bypass grafting due to multivessel disease with stable angina.
Hospital course: Patient underwent coronary artery bypass grafting x 4 (BOSTON to LAD, SVG to high diagonal, SVG to OM, SVG to RPDA) and left atrial appendage exclusion (#35 mm clip) with Dr. Chase Wallace. Patient received no intraoperative blood
products and returned to CVICU on Cardene, insulin, and Precedex. Patient is extubated 1600 on the day of surgery. Postoperative day #1, the Levophed was weaned off it over 500 and creatinine bumped to 1.8. Pleural chest tubes were discontinued.
Patient was bladder scanned for 180 cc of urine and Lasix 40 mg initiated. Patient received an additional 2 mg of Bumex overnight and creatinine bumped to 2.5 on postoperative day #2. Lactated Ringer's at 50 cc an hour was initiated. Liver
function tests were normal. Temporary atrial and ventricular wires were pulled. Mediastinal chest tube was discontinued. Repeat next venous saturation was 53% and dobutamine started. Repeat creatinine later in the day plateaued at 2.4. Oxygen
saturation dropped to 80% and Lasix 40 mg IV was initiated. Bladder scan confirmed 580 cc of urine and Balbuena was reinserted for retention. Repeat mixed venous was 57.4% at 1800. Postoperative day #3, patient was weaned off dobutamine. Repeat
echocardiogram reported an ejection fraction of 50%. Ultrasound of the chest showed small to moderate pleural effusion. PT and OT was consulted for rehab evaluation. Patient was deemed a candidate for SNF on discharge. Diabetes management team
was consulted for persistent elevated glucose and insulin drip was resumed. Balbuena catheter was removed again on postoperative day #4. Insulin drip was discontinued. Patient was straight cathed for x 1 later in the day. Postop day #5, Bumex was
decreased to twice daily IV dosing. Balbuena was replaced and will remain in place on discharge with trial of void at rehab facility. Per diabetes team, Trulicity will be resumed after discharge from rehab facility. Metformin will continued to be
held on discharge due to creatinine of 2.0. Blood sugars should continue to be monitored AC + HS. Patient should have repeat CXR/BMP in 1 week.
Home medication changes:
Resume Trulicity after discharge from rehab facility as this is pre-filled for patient by PCP
Hold Metformin due to creat 2.0
Discharge Plan
-
Patient Disposition: Care Home/SNF
Discharge Diagnosis/Procedures: CAD/CABG
Diet: Low Cholesterol, Low Sodium and Diabetic, Carb Controlled
Activity: No strenuous activity
Driving Restrictions: Not until seen by your Dr
Bathing Restrictions: OK to Shower
Blood Work: BMP in 1 week; CXR (PA & lat) in 1 week
Other Services: Cardiac Rehab
Specialty Instructions: Weigh Daily- Call MD for wt gain/loss 3 lbs overnight/5 lbs in 1 week
Activity Restrictions/Additional Instructions:
Please call [facility] Phase 2 program to schedule your first visit at [phone]
Referrals:
[facility] [Outside]
Pollo Bella DO [Family Provider] -
Raghav Yao DO [Active] - 09/19/23 10:20 am
(Please note: appointment address is [address] [place] [address] [place] [id number]
)
Kody Kulkarni MD [Active] - in one month (voiding trial)
Chase Wallace MD [Active] - 09/12/23 12:45 pm
Prescriptions:
New
acetaminophen 325 mg Tablet
650 mg PO Q4HPRN PRN (Reason: mild pain,headache,temp >101F ) Qty: 0 0RF
clopidogrel 75 mg Tablet
75 mg PO DAILY Qty: 0 0RF
tamsulosin 0.4 mg Capsule
0.4 mg PO DAILY Qty: 0 0RF
metoprolol succinate 25 mg Tablet Extended Release 24 Hr
12.5 mg PO DAILY Qty: 0 0RF
bumetanide 2 mg Tablet
2 mg PO DAILY Qty: 0 0RF
dapagliflozin propanediol 10 mg Tablet
10 mg PO DAILY Qty: 0 0RF
gabapentin 100 mg Capsule
100 mg PO TID Qty: 0 0RF
insulin aspart U-100 100 unit/mL (3 mL) Insulin Pen
12 unit SC AC Qty: 0 0RF
Continued
atorvastatin 40 mg Tablet
40 mg PO HS
glipizide 10 mg Tablet
10 mg PO BID
pantoprazole 40 mg Tablet,Delayed Release (Dr/Ec)
40 mg PO DAILY
mirtazapine 30 mg Tablet
30 mg PO HS
aspirin 81 mg Tablet
81 mg PO DAILY
aripiprazole 5 mg Tablet
5 mg PO BID
insulin glargine 100 unit/mL Cartridge
50 unit SC DAILY
Discontinued
multivitamin Tablet
1 tab PO DAILY
losartan 50 mg Tablet
50 mg PO DAILY
metformin 500 mg Tablet
500 mg PO BID
potassium chloride 10 mEq Capsule, Extended Release
10 meq PO HS
bumetanide 2 mg Tablet
2 mg PO MOWEFR
clindamycin HCl 300 mg Capsule
300 mg PO TID
famotidine 40 mg Tablet
40 mg PO DAILY
amlodipine 10 mg Tablet
10 mg PO DAILY
indomethacin 50 mg Capsule
50 mg PO BID
carvedilol phosphate 10 mg Capsule, Er Multiphase 24 Hr
10 mg PO DAILY
Trulicity 1.5 mg/0.5 mL Pen Injector
1.5 mg SC QWEEK
Discharge Orders:
Discharge Patient (As Directed); Ordered 08/09/23
Ordered By: Tiana Polk
Care Plan Goals
Care Plan Goals:
Problem: Readiness for enhanced knowledge related to diagnosis and treatment plan
Goal: Understand your diagnosis and treatment plan needs, including medications if applicable.
Instructions: Know your diagnosis, underlying causes and treatment plan options, including medications if applicable. Consult with your health care team to learn about your diagnosis and treatment plan, including medications if applicable.
Discharge Date and Time
Print Language: MACEDONIAN
[2023-08-09] MEDS: NSS IV (10:18)
[2023-08-09] MEDS: LANTUS 0.550000000000000044 UNITS SC (10:19)
[2023-08-09] MEDS: FLEXERIL 5 MG PO (10:24)
[2023-08-09] MEDS: LANTUS SC (10:27)
[2023-08-09] MEDS: NOVOLOG FLEXPEN-LOW RESISTANCE 5 UNITS SC (11:12)
[2023-08-09] MEDS: NOVOLOG FLEXPEN 12 UNITS SC (11:13)
[2023-08-09 11:21] LABS: Glucose - Point of Care 364 mg/dl (70-99)
--- NOTE | 2023-08-09 14:00 | CM ---
discussed pts dc plan with [facility] / Faye [phone]; Dr Bella/ PCP- Mary Alice [phone]; and SW at [employer] [facility]- Jacey Carlisle [phone]. dc instructions faxed to each. pt going to [employer] today and was transferred via [employer] van-
paid for by pts executor- Billy Yao [phone]. Billy was updated to pts dc plan. pt gets his meds delivered to his home from [facility] and he will call them prior to dc from [email or web address].
== END 2023-08-09 11:35 | DRG 235 ==
LOC: CVICU 04:54
PROVIDERS: Anesthesiology; Clinical Nurse Specialist Acute Care; Nurse Practitioner; Physician Assistant Medical; ADMITTING PHYSICIAN Thoracic Surgery (Cardiothoracic Vascular Surgery); FAMILY PHYSICIAN Family Medicine; OTHER PHYSICIAN Internal Medicine Critical Care Medicine
PROC: B24BZZ4 Ultrasonography of Heart with Aorta, Transesophageal (ICD-10-PCS; 2023-08-03)
PROC: 02L70CK Occlusion of Left Atrial Appendage with Extraluminal Device, Open Approach (ICD-10-PCS; 2023-08-03)
PROC: 06BP4ZZ Excision of Right Saphenous Vein, Percutaneous Endoscopic Approach (ICD-10-PCS; 2023-08-03)
PROC: 5A1221Z Performance of Cardiac Output, Continuous (ICD-10-PCS; 2023-08-03)
PROC: 021209W Bypass Coronary Artery, Three Arteries from Aorta with Autologous Venous Tissue, Open Approach (ICD-10-PCS; 2023-08-03)
PROC: 02100Z9 Bypass Coronary Artery, One Artery from Left Internal Mammary, Open Approach (ICD-10-PCS; 2023-08-03)
DX: I25.118 Atherosclerotic heart disease of native coronary artery with other forms of angina pectoris (principal); I50.23 Acute on chronic systolic (congestive) heart failure; J96.01 Acute respiratory failure with hypoxia; N17.9 Acute kidney failure, unspecified; I13.0 Hypertensive heart and chronic kidney disease with heart failure and stage 1 through stage 4 chronic kidney disease, or unspecified chronic kidney disease; D62 Acute posthemorrhagic anemia; J98.11 Atelectasis; J90 Pleural effusion, not elsewhere classified; N18.32 Chronic kidney disease, stage 3b; E78.5 Hyperlipidemia, unspecified; E11.22 Type 2 diabetes mellitus with diabetic chronic kidney disease; F20.9 Schizophrenia, unspecified; G47.33 Obstructive sleep apnea (adult) (pediatric); I44.7 Left bundle-branch block, unspecified; I42.8 Other cardiomyopathies; R33.9 Retention of urine, unspecified; Z79.4 Long term (current) use of insulin; Z79.82 Long term (current) use of aspirin; Z79.899 Other long term (current) drug therapy
CPT/HCPCS: 93308; 36415; 71045; 71046; 71250; 76604; 80048; 80053; 81003; 81015; 82248; 82330; 82565; 82805; 82810; 82947; 82962; 83036; 83735; 84132; 84302; 84520; 85014; 85018; 85025; 85027; 85049; 85610; 85730; 86803; 86850; 86900; 86901; 86920; 87070; 93005; 93312; 93320; 93321; 93325; 93880; 94002; 97163; 97166; J2916; P9045; P9047; Q9950

== ENCOUNTER → 2023-08-13 12:31 | Outpatient (REF) | payer OTHER, MEDICARE, SELFPAY ==
[2023-08-13 13:26] LABS: % Basophils 0.8 % (0-2); % Eosinophils 5.2 % (0-6); % Immature Granulocytes 1.2 % (0-0.5); % Lymphocytes 18.1 % (20.5-51.1); % Monocytes 7.5 % (1.7-9.3); % Neutrophils 67.2 % (42.2-75.2); Absolute Basophils 0.1 10^3/uL (0-0.2); Absolute Eosinophils 0.8 10^3/uL (0-0.7); Absolute Immature Granulocytes 0.2 10^3/uL (0-0.05); Absolute Lymphocytes 2.6 10^3/uL (1.2-3.4); Absolute Monocytes 1.1 10^3/uL (0.1-0.6); Absolute Neutrophils 9.8 10^3/uL (1.4-6.5); Hematocrit 34.1 % (39.0-52.0); Hemoglobin 10.8 g/dL (13.0-18.0); Mean Corp Hgb Conc. 31.7 g/dL (33.0-37.0); Mean Corpuscular Hgb 28.1 pg (27.0-31.0); Mean Corpuscular Volume 88.6 fL (80.0-94.0); Nucleated Red Blood Cells % 0 % (-); Platelet Count 454 10^3/uL (130-400); Red Blood Cell Count 3.85 10^6/uL (4.70-6.10); Red Cell Dist. Width 14.5 % (11.5-14.5); White Blood Cell Count 14.6 10^3/uL (4.8-10.8)
[2023-08-13 13:42] LABS: Blood Urea Nitrogen 56 mg/dl (9-20); Calcium 8.9 mg/dl (8.4-10.2); Carbon Dioxide 28 mmol/L (22-30); Chloride 97 mmol/L (98-107); Glucose 206 mg/dl (70-99); Potassium 4.4 mmol/L (3.5-5.1); Sodium 139 mmol/L (135-145); eGFR 34.81
== END ==
LOC: OLABP 12:31
PROVIDERS: ATTENDING PHYSICIAN Family Medicine
DX: I25.10 Atherosclerotic heart disease of native coronary artery without angina pectoris (principal); J90 Pleural effusion, not elsewhere classified; D62 Acute posthemorrhagic anemia; I50.9 Heart failure, unspecified; N18.31 Chronic kidney disease, stage 3a; M62.81 Muscle weakness (generalized); I13.0 Hypertensive heart and chronic kidney disease with heart failure and stage 1 through stage 4 chronic kidney disease, or unspecified chronic kidney disease; E11.9 Type 2 diabetes mellitus without complications; I44.7 Left bundle-branch block, unspecified
CPT/HCPCS: 36415; 80048; 85025

== ENCOUNTER → 2023-08-14 10:19 | Outpatient (REF) | payer OTHER, SELFPAY ==
[2023-08-14 11:14] LABS: Hematocrit 32.5 % (39.0-52.0); Hemoglobin 10.5 g/dL (13.0-18.0); Mean Corp Hgb Conc. 32.3 g/dL (33.0-37.0); Mean Corpuscular Hgb 27.9 pg (27.0-31.0); Mean Corpuscular Volume 86.2 fL (80.0-94.0); Mean Platelet Volume 9.8 fL (7.4-10.4); Platelet Count 448 10^3/uL (130-400); Red Blood Cell Count 3.77 10^6/uL (4.70-6.10); Red Cell Dist. Width 14.3 % (11.5-14.5); White Blood Cell Count 14.6 10^3/uL (4.8-10.8)
[2023-08-14 11:29] LABS: Blood Urea Nitrogen 54 mg/dl (9-20); Calcium 8.8 mg/dl (8.4-10.2); Carbon Dioxide 29 mmol/L (22-30); Chloride 99 mmol/L (98-107); Glucose 284 mg/dl (70-99); Potassium 4.7 mmol/L (3.5-5.1); Sodium 138 mmol/L (135-145); eGFR 34.81
== END ==
LOC: OLABP 10:19
PROVIDERS: ATTENDING PHYSICIAN Family Medicine
DX: I25.10 Atherosclerotic heart disease of native coronary artery without angina pectoris (principal); J90 Pleural effusion, not elsewhere classified; D62 Acute posthemorrhagic anemia; I50.9 Heart failure, unspecified; N18.31 Chronic kidney disease, stage 3a; M62.81 Muscle weakness (generalized); I13.0 Hypertensive heart and chronic kidney disease with heart failure and stage 1 through stage 4 chronic kidney disease, or unspecified chronic kidney disease; E11.9 Type 2 diabetes mellitus without complications; I44.7 Left bundle-branch block, unspecified
CPT/HCPCS: 36415; 80048; 85027

== ENCOUNTER → 2023-08-17 10:39 | Outpatient (REF) | payer OTHER, MEDICARE, SELFPAY ==
[2023-08-17 12:21] LABS: Hematocrit 37.7 % (39.0-52.0); Hemoglobin 11.8 g/dL (13.0-18.0); Mean Corp Hgb Conc. 31.3 g/dL (33.0-37.0); Mean Corpuscular Hgb 27.4 pg (27.0-31.0); Mean Corpuscular Volume 87.7 fL (80.0-94.0); Platelet Count 489 10^3/uL (130-400); Red Cell Dist. Width 14.5 % (11.5-14.5); White Blood Cell Count 13.1 10^3/uL (4.8-10.8)
[2023-08-17 12:51] LABS: Blood Urea Nitrogen 47 mg/dl (9-20); Calcium 9.2 mg/dl (8.4-10.2); Carbon Dioxide 26 mmol/L (22-30); Chloride 101 mmol/L (98-107); Glucose 253 mg/dl (70-99); Potassium 4.3 mmol/L (3.5-5.1); Sodium 140 mmol/L (135-145); eGFR 37.02
== END ==
LOC: OLABP 10:39
PROVIDERS: ATTENDING PHYSICIAN Family Medicine
DX: I25.10 Atherosclerotic heart disease of native coronary artery without angina pectoris (principal); D62 Acute posthemorrhagic anemia; I50.9 Heart failure, unspecified; N18.31 Chronic kidney disease, stage 3a; M62.81 Muscle weakness (generalized); I13.0 Hypertensive heart and chronic kidney disease with heart failure and stage 1 through stage 4 chronic kidney disease, or unspecified chronic kidney disease; E11.9 Type 2 diabetes mellitus without complications; I44.7 Left bundle-branch block, unspecified
CPT/HCPCS: 36415; 80048; 85027

== ENCOUNTER → 2023-08-20 11:47 | Outpatient (REF) | payer OTHER, MEDICARE, SELFPAY ==
[2023-08-20 12:28] LABS: % Basophils 0.8 % (0-2); % Eosinophils 6.2 % (0-6); % Immature Granulocytes 1.1 % (0-0.5); % Lymphocytes 15.3 % (20.5-51.1); % Monocytes 8.3 % (1.7-9.3); % Neutrophils 68.3 % (42.2-75.2); Absolute Basophils 0.1 10^3/uL (0-0.2); Absolute Eosinophils 0.8 10^3/uL (0-0.7); Absolute Immature Granulocytes 0.1 10^3/uL (0-0.05); Absolute Lymphocytes 1.9 10^3/uL (1.2-3.4); Absolute Neutrophils 8.3 10^3/uL (1.4-6.5); Hematocrit 33.5 % (39.0-52.0); Hemoglobin 10.8 g/dL (13.0-18.0); Mean Corp Hgb Conc. 32.2 g/dL (33.0-37.0); Mean Corpuscular Hgb 27.6 pg (27.0-31.0); Mean Corpuscular Volume 85.5 fL (80.0-94.0); Nucleated Red Blood Cells % 0 % (-); Platelet Count 464 10^3/uL (130-400); Red Blood Cell Count 3.92 10^6/uL (4.70-6.10); Red Cell Dist. Width 14.6 % (11.5-14.5); White Blood Cell Count 12.1 10^3/uL (4.8-10.8)
[2023-08-20 12:36] LABS: Blood Urea Nitrogen 44 mg/dl (9-20); Calcium 9.2 mg/dl (8.4-10.2); Carbon Dioxide 25 mmol/L (22-30); Chloride 102 mmol/L (98-107); Glucose 227 mg/dl (70-99); Potassium 4.2 mmol/L (3.5-5.1); Sodium 138 mmol/L (135-145)
== END ==
LOC: OLABP 11:47
PROVIDERS: ATTENDING PHYSICIAN Family Medicine
DX: I25.10 Atherosclerotic heart disease of native coronary artery without angina pectoris (principal); J90 Pleural effusion, not elsewhere classified; D62 Acute posthemorrhagic anemia; I50.9 Heart failure, unspecified; N18.31 Chronic kidney disease, stage 3a; M62.81 Muscle weakness (generalized); I13.0 Hypertensive heart and chronic kidney disease with heart failure and stage 1 through stage 4 chronic kidney disease, or unspecified chronic kidney disease; E11.9 Type 2 diabetes mellitus without complications; I44.7 Left bundle-branch block, unspecified
CPT/HCPCS: 36415; 80048; 85025

== ENCOUNTER → 2023-08-23 09:32 | Outpatient (REF) | payer OTHER, MEDICARE, SELFPAY ==
[2023-08-23 10:47] LABS: Hematocrit 32.4 % (39.0-52.0); Hemoglobin 10.4 g/dL (13.0-18.0); Mean Corp Hgb Conc. 32.1 g/dL (33.0-37.0); Mean Corpuscular Hgb 27.1 pg (27.0-31.0); Mean Corpuscular Volume 84.4 fL (80.0-94.0); Mean Platelet Volume 9.7 fL (7.4-10.4); Platelet Count 457 10^3/uL (130-400); Red Blood Cell Count 3.84 10^6/uL (4.70-6.10); Red Cell Dist. Width 14.6 % (11.5-14.5); White Blood Cell Count 18.8 10^3/uL (4.8-10.8)
[2023-08-23 12:06] LABS: Blood Urea Nitrogen 31 mg/dl (9-20); Calcium 8.7 mg/dl (8.4-10.2); Carbon Dioxide 24 mmol/L (22-30); Chloride 103 mmol/L (98-107); Glucose 119 mg/dl (70-99); Potassium 4.1 mmol/L (3.5-5.1); Sodium 137 mmol/L (135-145)
== END ==
LOC: OLABP 09:32
PROVIDERS: ATTENDING PHYSICIAN Family Medicine
DX: I25.10 Atherosclerotic heart disease of native coronary artery without angina pectoris (principal); J90 Pleural effusion, not elsewhere classified; D62 Acute posthemorrhagic anemia; I50.9 Heart failure, unspecified; N18.31 Chronic kidney disease, stage 3a; M62.81 Muscle weakness (generalized); I13.0 Hypertensive heart and chronic kidney disease with heart failure and stage 1 through stage 4 chronic kidney disease, or unspecified chronic kidney disease; E11.9 Type 2 diabetes mellitus without complications; I44.7 Left bundle-branch block, unspecified
CPT/HCPCS: 36415; 80048; 85027

== ENCOUNTER → 2023-08-24 16:29 | Outpatient (REF) | payer OTHER, MEDICARE, SELFPAY ==
[2023-08-24 17:00] LABS: % Basophils 0.5 % (0-2); % Eosinophils 5.6 % (0-6); % Immature Granulocytes 0.7 % (0-0.5); % Lymphocytes 9.3 % (20.5-51.1); % Monocytes 7.6 % (1.7-9.3); % Neutrophils 76.3 % (42.2-75.2); Absolute Basophils 0.1 10^3/uL (0-0.2); Absolute Eosinophils 0.7 10^3/uL (0-0.7); Absolute Immature Granulocytes 0.1 10^3/uL (0-0.05); Absolute Lymphocytes 1.2 10^3/uL (1.2-3.4); Absolute Neutrophils 9.8 10^3/uL (1.4-6.5); Hematocrit 31.1 % (39.0-52.0); Hemoglobin 10.3 g/dL (13.0-18.0); Mean Corp Hgb Conc. 33.1 g/dL (33.0-37.0); Mean Corpuscular Hgb 27.4 pg (27.0-31.0); Mean Corpuscular Volume 82.7 fL (80.0-94.0); Mean Platelet Volume 10.1 fL (7.4-10.4); Nucleated Red Blood Cells % 0 % (-); Platelet Count 430 10^3/uL (130-400); Red Blood Cell Count 3.76 10^6/uL (4.70-6.10); Red Cell Dist. Width 14.6 % (11.5-14.5); White Blood Cell Count 12.8 10^3/uL (4.8-10.8)
[2023-08-24 17:06] LABS: Blood Urea Nitrogen 36 mg/dl (9-20); Calcium 8.6 mg/dl (8.4-10.2); Carbon Dioxide 21 mmol/L (22-30); Chloride 102 mmol/L (98-107); Glucose 233 mg/dl (70-99); Potassium 3.9 mmol/L (3.5-5.1); Sodium 136 mmol/L (135-145)
== END ==
LOC: OLABP 16:29
PROVIDERS: ATTENDING PHYSICIAN Family Medicine
DX: I25.10 Atherosclerotic heart disease of native coronary artery without angina pectoris (principal); J90 Pleural effusion, not elsewhere classified; D62 Acute posthemorrhagic anemia
CPT/HCPCS: 36415; 80048; 85025

== ENCOUNTER → 2023-08-28 11:00 | Outpatient (REF) | payer OTHER, MEDICARE, SELFPAY ==
[2023-08-28 11:25] LABS: % Basophils 1.1 % (0-2); % Eosinophils 8.9 % (0-6); % Immature Granulocytes 2.3 % (0-0.5); % Lymphocytes 18.5 % (20.5-51.1); % Monocytes 10.7 % (1.7-9.3); % Neutrophils 58.5 % (42.2-75.2); Absolute Basophils 0.1 10^3/uL (0-0.2); Absolute Eosinophils 1.1 10^3/uL (0-0.7); Absolute Immature Granulocytes 0.3 10^3/uL (0-0.05); Absolute Lymphocytes 2.2 10^3/uL (1.2-3.4); Absolute Monocytes 1.3 10^3/uL (0.1-0.6); Absolute Neutrophils 6.9 10^3/uL (1.4-6.5); Hematocrit 32.3 % (39.0-52.0); Hemoglobin 10.3 g/dL (13.0-18.0); Mean Corp Hgb Conc. 31.9 g/dL (33.0-37.0); Mean Corpuscular Hgb 26.7 pg (27.0-31.0); Mean Corpuscular Volume 83.7 fL (80.0-94.0); Mean Platelet Volume 9.7 fL (7.4-10.4); Nucleated Red Blood Cells % 0 % (-); Platelet Count 458 10^3/uL (130-400); Red Blood Cell Count 3.86 10^6/uL (4.70-6.10); Red Cell Dist. Width 14.9 % (11.5-14.5); White Blood Cell Count 11.8 10^3/uL (4.8-10.8)
[2023-08-28 12:20] LABS: Blood Urea Nitrogen 21 mg/dl (9-20); Calcium 8.7 mg/dl (8.4-10.2); Carbon Dioxide 25 mmol/L (22-30); Chloride 107 mmol/L (98-107); Glucose 59 mg/dl (70-99); Potassium 4.4 mmol/L (3.5-5.1); Sodium 141 mmol/L (135-145)
== END ==
LOC: OLABP 11:00
PROVIDERS: ATTENDING PHYSICIAN Family Medicine
DX: I25.10 Atherosclerotic heart disease of native coronary artery without angina pectoris (principal); J90 Pleural effusion, not elsewhere classified; D62 Acute posthemorrhagic anemia; I50.9 Heart failure, unspecified; N18.31 Chronic kidney disease, stage 3a; M62.81 Muscle weakness (generalized); I13.0 Hypertensive heart and chronic kidney disease with heart failure and stage 1 through stage 4 chronic kidney disease, or unspecified chronic kidney disease; E11.9 Type 2 diabetes mellitus without complications; I44.7 Left bundle-branch block, unspecified
CPT/HCPCS: 36415; 80048; 85025

== ENCOUNTER → 2023-08-31 11:03 | Outpatient (REF) | payer OTHER, MEDICARE, SELFPAY ==
[2023-08-31 12:10] LABS: % Basophils 1.1 % (0-2); % Eosinophils 8.6 % (0-6); % Immature Granulocytes 1.9 % (0-0.5); % Lymphocytes 22.4 % (20.5-51.1); Absolute Basophils 0.1 10^3/uL (0-0.2); Absolute Eosinophils 0.9 10^3/uL (0-0.7); Absolute Immature Granulocytes 0.2 10^3/uL (0-0.05); Absolute Lymphocytes 2.3 10^3/uL (1.2-3.4); Absolute Monocytes 0.9 10^3/uL (0.1-0.6); Absolute Neutrophils 5.9 10^3/uL (1.4-6.5); Hematocrit 32.5 % (39.0-52.0); Hemoglobin 9.8 g/dL (13.0-18.0); Mean Corp Hgb Conc. 30.2 g/dL (33.0-37.0); Mean Corpuscular Hgb 26.1 pg (27.0-31.0); Mean Corpuscular Volume 86.7 fL (80.0-94.0); Mean Platelet Volume 9.3 fL (7.4-10.4); Nucleated Red Blood Cells % 0 % (-); Platelet Count 445 10^3/uL (130-400); Red Blood Cell Count 3.75 10^6/uL (4.70-6.10); Red Cell Dist. Width 14.9 % (11.5-14.5); White Blood Cell Count 10.4 10^3/uL (4.8-10.8)
[2023-08-31 12:40] LABS: Blood Urea Nitrogen 18 mg/dl (9-20); Calcium 8.8 mg/dl (8.4-10.2); Carbon Dioxide 26 mmol/L (22-30); Chloride 105 mmol/L (98-107); Glucose 58 mg/dl (70-99); Potassium 4.2 mmol/L (3.5-5.1); Sodium 141 mmol/L (135-145); eGFR 49.16
== END ==
LOC: OLABP 11:03
PROVIDERS: ATTENDING PHYSICIAN Family Medicine
DX: I25.10 Atherosclerotic heart disease of native coronary artery without angina pectoris (principal); J90 Pleural effusion, not elsewhere classified; D62 Acute posthemorrhagic anemia; I50.9 Heart failure, unspecified; N18.31 Chronic kidney disease, stage 3a; M62.81 Muscle weakness (generalized); I13.0 Hypertensive heart and chronic kidney disease with heart failure and stage 1 through stage 4 chronic kidney disease, or unspecified chronic kidney disease; E11.9 Type 2 diabetes mellitus without complications; I44.7 Left bundle-branch block, unspecified
CPT/HCPCS: 36415; 80048; 85025

== ENCOUNTER → 2023-09-11 11:23 | Outpatient (REF) | payer MEDICARE, SELFPAY ==
[2023-09-11 13:16] LABS: % Basophils 1.2 % (0-2); % Eosinophils 8.8 % (0-6); % Immature Granulocytes 0.6 % (0-0.5); % Lymphocytes 24.8 % (20.5-51.1); % Monocytes 10.3 % (1.7-9.3); % Neutrophils 54.3 % (42.2-75.2); Absolute Basophils 0.1 10^3/uL (0-0.2); Absolute Eosinophils 0.7 10^3/uL (0-0.7); Absolute Immature Granulocytes 0.1 10^3/uL (0-0.05); Absolute Lymphocytes 2.1 10^3/uL (1.2-3.4); Absolute Monocytes 0.9 10^3/uL (0.1-0.6); Absolute Neutrophils 4.6 10^3/uL (1.4-6.5); Hematocrit 37.8 % (39.0-52.0); Hemoglobin 11.7 g/dL (13.0-18.0); Mean Corpuscular Hgb 26.8 pg (27.0-31.0); Mean Corpuscular Volume 86.5 fL (80.0-94.0); Mean Platelet Volume 9.9 fL (7.4-10.4); Nucleated Red Blood Cells % 0 % (-); Platelet Count 349 10^3/uL (130-400); Red Blood Cell Count 4.37 10^6/uL (4.70-6.10); Red Cell Dist. Width 15.2 % (11.5-14.5); White Blood Cell Count 8.4 10^3/uL (4.8-10.8)
[2023-09-11 13:35] LABS: ALT (SGPT) 22 U/L (0-50); AST (SGOT) 23 U/L (17-59); Albumin 3.7 g/dl (3.5-5.0); Alkaline Phosphatase 163 U/L (38-126); Blood Urea Nitrogen 24 mg/dl (9-20); Carbon Dioxide 29 mmol/L (22-30); Chloride 101 mmol/L (98-107); Glucose 66 mg/dl (70-99); Potassium 3.9 mmol/L (3.5-5.1); Sodium 140 mmol/L (135-145); Total Bilirubin 0.6 mg/dl (0.2-1.3); Total Protein 6.4 g/dl (6.3-8.2); eGFR 36.79
== END ==
LOC: OLABP 11:23
PROVIDERS: ATTENDING PHYSICIAN Family Medicine
DX: I25.10 Atherosclerotic heart disease of native coronary artery without angina pectoris (principal); I13.0 Hypertensive heart and chronic kidney disease with heart failure and stage 1 through stage 4 chronic kidney disease, or unspecified chronic kidney disease
CPT/HCPCS: 36415; 80053; 85025